=== PATIENT | female | born 1990 | race Caucasian/White ===

== ENCOUNTER → 2016-03-31 | Outpatient (CLI) | payer OTHER ==
[~2016-03-31] MED LIST: BUTA50TA6 PO; LEVE250T PO; LEVO75TA5 PO; ZNTT/150 PO; ZOLP10TA6 PO
[2016-03-31 14:04] LABS: INFLUENZA A PCR POS for Influ A (NEG); INFLUENZA B PCR Neg for Influ B (NEG)
== END | disposition home or self-care (01) ==
LOC: C.LABBFT 09:43
PROVIDERS: ATTEND Internal Medicine
DX: R68.89 Other general symptoms and signs (principal)

== ENCOUNTER → 2016-09-28 | Outpatient (CLI) | payer OTHER ==
[2016-09-28 17:54] LABS: BASO % 0.5 %; BASO ABS # 0.04 K/uL (0-0.2); COMPLETE YES; EOS % 0.7 %; HEMATOCRIT 40.2 % (37-47); IG% 0.2 %; LYMPH % 27.9 %; LYMPH ABS # 2.26 K/uL (1.2-3.4); MEAN CELL VOLUME 87.2 fL (80-100); MEAN CORPUSCULAR HEMOGLOBIN 29.3 pg (25-34); MEAN CORPUSCULAR HGB CONC 33.6 g/dl (32-36); MEAN PLATELET VOLUME 11.9 fL (7.4-10.4); MONO % 5.6 %; NEUT % 65.1 %; PLATELET COUNT 236 K/uL (130-400); RED BLOOD COUNT 4.61 M/uL (4.2-5.4)
[2016-09-28 18:03] LABS: ALT/SGPT 29 U/L (12-78); BLOOD UREA NITROGEN 10 mg/dl (7-18); CALCIUM 9.3 mg/dl (8.5-10.1); CARBON DIOXIDE 24 mmol/L (21-32); CHLORIDE 108 mmol/L (98-107); CHOLESTEROL 164 mg/dl (0-200); GLUCOSE 82 mg/dl (70-99); POTASSIUM 4.3 mmol/L (3.5-5.1); SODIUM 140 mmol/L (136-145); TRIGLYCERIDES 173 mg/dl (0-150); VERY LOW DENSITY LIPOPROT CALC 35 mg/dl
[2016-09-28 18:11] LABS: ALB/GLOB RATIO 0.9 (0.9-2); ALKALINE PHOSPHATASE 67 U/L (45-117); AST/SGOT 22 U/L (15-37); CHOLESTEROL/HDL RATIO 3.5; HDL CHOLESTEROL 47 mg/dl; LDL CHOLESTEROL CALCULATED 82 mg/dl
== END | disposition home or self-care (01) ==
LOC: C.LABBFT 12:45
PROVIDERS: ATTEND Physician Assistant Medical
DX: E03.9 Hypothyroidism, unspecified (principal)

== ENCOUNTER → 2017-02-20 | Outpatient (CLI) | payer OTHER ==
[~2017-02-20] MED LIST changes: +ASCO100T4 PO; +B-COTAB18 PO; +CAL MAG ZINC PO; +CHOL20007 PO; +ERGO500011 PO; +ETONMIS VAGRING; +HYDR-5688 PO; +LEVE500T13 PO; +LEVO50TA6 PO; +LORA-741 PO; +METH-445 PO; +POTA1TAB PO; +RANI150T85 PO; -ZNTT/150 PO
[2017-02-20 13:05] LABS: ALBUMIN 3.4 gm/dl (3.4-5.0); ALT/SGPT 26 U/L (12-78); AST/SGOT 17 U/L (15-37); BLOOD UREA NITROGEN 10 mg/dl (7-18); CALCIUM 8.7 mg/dl (8.5-10.1); CARBON DIOXIDE 23 mmol/L (21-32); CREATININE 1.05 mg/dl (0.60-1.20); GLUCOSE 85 mg/dl (70-99); POTASSIUM 3.8 mmol/L (3.5-5.1); SODIUM 137 mmol/L (136-145); TOTAL PROTEIN 7.6 gm/dl (6.4-8.2)
[2017-02-20 13:16] LABS: ALKALINE PHOSPHATASE 70 U/L (45-117)
== END | disposition home or self-care (01) ==
LOC: C.LABBFT 09:21
PROVIDERS: ATTEND Internal Medicine
DX: R25.2 Cramp and spasm (principal); E03.9 Hypothyroidism, unspecified; E55.9 Vitamin D deficiency, unspecified; D89.2 Hypergammaglobulinemia, unspecified

== ENCOUNTER → 2017-05-07 | Outpatient (CLI) | payer OTHER ==
[~2017-05-07] MED LIST changes: +GADAVIST IV PRN; -LEVE250T PO; -LEVO75TA5 PO; -METH-445 PO; +METH500T37 PO
--- NOTE | 2017-05-07 11:14 | DIAGNOSTIC IMAGING REPORT ---
R INJECTION SHOULDER PRE MRI CLINICAL HISTORY: 27 years-old Female presenting with RIGHT SHOULDER ARTHROGRAM PRE MRI. COMPARISON: 04/13/2017. PROCEDURE: The risks, benefits, and alternatives to the procedure were discussed with the patient. Written informed consent was obtained. The patient was placed supine on the fluoroscopy table, and a right shoulder injection was performed under fluoroscopic guidance. The area was prepped and draped in the usual sterile fashion. The skin and soft tissues anesthetized with local 1% lidocaine. The right shoulder joint was accessed utilizing a 22-gauge needle, and approximately 10 cc of a mixture of gadolinium contrast, Optiray 300, and saline was injected into the joint space under fluoroscopic guidance. There was normal distention of the capsule. The procedure was well tolerated without immediate complication. The patient was then transferred to MRI for MR arthrography. Fluoroscopy dosage (mGy): Not available. Fluoroscopy time: 15 seconds. Number of fluoroscopic spot images: 0. IMPRESSION: Successful injection of the right shoulder under fluoroscopic guidance. Electronically signed by: Fam Rascon M.D. 05/07/2017 11:12 AM Dictated Date/Time: 05/07/2017 11:12 AM
--- NOTE | 2017-05-07 12:48 | DIAGNOSTIC IMAGING REPORT ---
R UPPER EXT JOINT WITH CLINICAL HISTORY: 27 years-old Female presenting with RT SHOULDER PAIN, ROTATOR CUFF TENDONITIS. TECHNIQUE: Multisequence, multiplanar MR imaging of the right shoulder was performed after the administration of intra-articular contrast. IV contrast: None. COMPARISON: Plain radiographs from 04/13/2017. FINDINGS: Localizer images: Unremarkable. Bone marrow: No bony edema. Articular cartilage: Intact. Labrum: Irregularity of the posterior inferior labrum from 6:00 to 9:00 concerning for a tear. This appears to remain in continuity with the periosteum of the glenoid. The biceps labral complex is intact. Long head of the biceps tendon well seated within the intertubercular groove. Short head of the biceps tendon and long head of the triceps tendon intact. Rotator cuff: Minimal increased signal intensity within the infraspinatus and supraspinatus tendons without a focal tear, possibly mild tendinosis. Subscapularis and teres minor tendons intact. Acromioclavicular joint: Normal. Flat undersurface of the acromion. Joint: Expected distention with intra-articular contrast. No loose body. Muscles: Normal muscle bulk and muscle signal intensity. IMPRESSION: 1. Findings suggest posterior inferior labral tear. 2. No evidence of a rotator cuff tear. Possible tendinosis of the infraspinatus and supraspinatus tendons. Electronically signed by: Fam Rascon M.D. 05/07/2017 12:47 PM Dictated Date/Time: 05/07/2017 11:13 AM
== END | disposition home or self-care (01) ==
LOC: C.MRIBC 09:59
PROVIDERS: ATTEND Orthopaedic Surgery
DX: M75.91 Shoulder lesion, unspecified, right shoulder (principal)

== ENCOUNTER → 2017-09-06 | Outpatient (CLI) | payer OTHER ==
[~2017-09-06] MED LIST changes: -GADAVIST IV PRN
== END | disposition home or self-care (01) ==
LOC: C.LABBFT 11:11
PROVIDERS: ATTEND Nurse Practitioner
DX: E03.9 Hypothyroidism, unspecified (principal); E55.9 Vitamin D deficiency, unspecified; Z13.220 Encounter for screening for lipoid disorders; Z13.228 Encounter for screening for other metabolic disorders; R10.9 Unspecified abdominal pain

== ENCOUNTER → 2017-09-26 | Outpatient (CLI) | payer OTHER ==
[~2017-09-26] MED LIST changes: +METH-445 PO; -METH500T37 PO
== END | disposition home or self-care (01) ==
LOC: C.LABBFT 13:41
PROVIDERS: ATTEND Nurse Practitioner
DX: R10.9 Unspecified abdominal pain (principal); Z13.220 Encounter for screening for lipoid disorders; E06.3 Autoimmune thyroiditis; E55.9 Vitamin D deficiency, unspecified

== ENCOUNTER 2020-08-09 07:51 | Inpatient (IN) ==
[2020-08-09] MEDS ORDERED: DINOPROSTONE 10 MG INSERT PV ONE (10:10)
[2020-08-09] MEDS ORDERED: OXYTOCIN 30 UNITS/500 ML BAG IV PRN (10:10)
--- NOTE | 2020-08-09 10:23 | History & Physical Report ---
Date of Service August 09, 2020 Assessment & Plan (1) Elective induction of labor planned: 30-year-old at 40 weeks of gestation, scheduled induction of labor at term due to ongoing tooth abscess and requiring root canal therapy in next following weeks. Vital signs stable afebrile, heart rate reassuring, GBS negative, Cervix unfavorable and presenting part is high. Discussed induction of labor with above findings and understands it may take 1 to 3 days. We discussed prostaglandins as Cervidil and Cytotec, Plan to admit, monitor, IV fluids, labs and Cervidil for cervical ripening All questions were answered. (2) Tooth abscess: (3) Unfavorable cervix in term : Admission and Anticipated Discharge Date Admission Date: August 09, 2020 History of Present Illness Primary Care Provider: Vladimir Watt MD Patient is a 30-year-old G1, P0 at 40 weeks of gestation who is scheduled for induction of labor at term due to ongoing tooth abscess and requiring root canal treatment sooner than later. Patient has no signs of labor, denies contractions, leakage of fluid, vaginal bleeding and she reports good movements. Her has been complicated by 1 hypothyroidism, on Levoxyl 50 mcg daily 2 headache in , migraines and has been on magnesium, vitamin B complex and Keppra 3 Tooth abscess, on Amoxicillin Allergies Allergy/AdvReac Type Severity Reaction Status Date / Time sumatriptan Allergy Mild could have Verified 08/09/20 08:35 caused pancreatitis in the past, SOB, HEADACHE topiramate Allergy Unknown UNKNOWN Verified 08/09/20 08:35 Home Medications Medication Instructions Recorded Confirmed Type cholecalciferol (vitamin D3) 50 2,000 units PO DAILY 11/30/17 08/09/20 History mcg (2,000 unit) capsule famotidine 20 mg tablet 20 mg PO DAILY #90 tab 07/24/19 08/09/20 Rx butalbital 50 mg-acetaminophen 300 1 - 2 tab PO BID PRN #10 tab 10/14/19 08/09/20 Rx mg tablet docosahexaenoic acid 200 mg capsule 200 mg PO DAILY #30 cap 12/08/19 08/09/20 Rx folic acid 1 mg tablet 1 mg PO DAILY #30 tab 12/08/19 08/09/20 Rx levetiracetam 500 mg tablet 500 mg PO .COMPLEX 30 Days #90 tab 03/26/20 08/09/20 Rx riboflavin (vitamin B2) 400 mg 400 mg PO DAILY #30 tab 05/07/20 08/09/20 Rx tablet levothyroxine 50 mcg tablet 50 mcg PO DAILY #30 tab 06/28/20 08/09/20 Rx amoxicillin 500 mg PO TID 08/09/20 08/09/20 History magnesium oxide 250 mg PO DAILY 08/09/20 08/09/20 History Patient History Medical History (Updated 08/09/20 @ 10:21 by Gopi Van MD) Ld's thyroiditis History of acute pancreatitis History of Lyme disease Migraine without aura, not intractable, without status migrainosus Radial head dislocation Family History Mother Rheumatoid arthritis Crohn's disease Father Hypertension Social History Smoking Status: Never smoker Hx Alcohol Use: No Hx Substance Use: No Preferred Language: Yakut Communication Ability: Effective Beliefs That Will Affect Care: None marital status: Current Living Situation: Spouse current occupational status: employed 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 Other Information That Helps Us Care for You: No Feels Safe at Home: Yes Safety Concerns: Feels Safe At This Time Assistive Devices: None 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 No h/o STD's, no h/o HSV, Chlamydia, Gonorrhea Physical Exam Constitutional: WD/WN, vitals as above well developed and well nourished NAD Gastrointestinal (Abdomen): normal bowel sounds, soft, nontender, no hepatosplenomegaly (Gravid, Del 7-8 lb) Genitourinary: normal external appearance Manual OB Exam: + cervical dilation (0), + cervical effacement 30% and + station high (-5) OB Exam Monitor Tracing: + external uterine monitor used and + category I Bed side US: vertex, placenta fundo posterior Results & Data ([facility]) Vital Signs (Past 12 Hours) Vital Signs Temp Pulse Resp BP 08/09/20 08:22 36.8 C 88 20 122/70
[2020-08-09 10:36] LABS: Hematocrit (blood only) 36.3 % (37-47); Hemoglobin 12.7 g/dL (12.0-16.0); Mean Corpuscular Hemoglobin 32.1 pg (25-34); Mean Corpuscular Volume 91.7 fL (80-100); Mean Platelet Volume 11.6 fL (7.4-10.4); Platelet Count 256 K/uL (130-400); RDW Coefficient of Variation 14.8 % (11.5-14.5); RDW Standard Deviation 49.8 fL (36.4-46.3); Red Blood Count 3.96 M/uL (4.2-5.4); White Blood Count 11.26 K/uL (4.8-10.8)
[2020-08-09] MEDS: AMOXICILLIN 500 MG CAP PO SCH ×2 (13:21→17:06)
[2020-08-09] MEDS ORDERED: AMOXICILLIN 500 MG CAP PO SCH (14:00)
--- NOTE | 2020-08-09 20:45 | Obstetrical Progress Note ---
Date of Service August 09, 2020 Assessment & Plan Admission and Anticipated Discharge Date Admission Date: August 09, 2020 Subjective Her induction was delayed due to nursing team and room availability She feels well no complaints Cervidil is placed FHR reassuring Continue to monitor closely Results & Data ([facility]) Vital Signs (Past 12 Hours) Vital Signs Temp Pulse Resp BP 08/09/20 20:15 76 136/83 08/09/20 14:58 36.6 C 75 20 135/83
[2020-08-09] MEDS: levETIRAcetam 500 MG TAB PO SCH (22:03)
[2020-08-09] MEDS ORDERED: ACETAMINOPHEN 1,000 MG/100 ML VIAL IV PRN (23:29)
[2020-08-09] MEDS: LACTATED RINGER'S 1,000 ML IV PRN (23:54)
[2020-08-09] MEDS: BUTORPHANOL TARTRATE 1 MG/ML VIAL IV PRN (23:55)
[2020-08-10] MEDS ORDERED: ONDANSETRON INJ 2 MG/ML 2 ML VIAL ONE (02:19)
[2020-08-10] MEDS: BUTORPHANOL TARTRATE 1 MG/ML VIAL IV PRN ×2 (03:00→21:37)
[2020-08-10] MEDS ORDERED: fentaNYL citrate 100 MCG/2 ML VIAL ONE ×2 (04:12→22:13)
[2020-08-10] MEDS ORDERED: fentaNYL 2MCG/ML ROPIVACAINE 1.25MG/ML 100 ML BAG EPI ONE (04:12)
[2020-08-10] MEDS ORDERED: SODIUM CHLORIDE 0.9% INJ 10 ML VIAL ONE (04:12)
[2020-08-10] MEDS ORDERED: BUPIVACAINE 0.25% 30 ML VIAL ONE (04:12)
[2020-08-10] MEDS ORDERED: ePHEDrine sulfate 50 MG/ML AMP ONE (04:12)
[2020-08-10] MEDS: LACTATED RINGER'S 1,000 ML IV PRN ×4 (04:31→18:09)
--- NOTE | 2020-08-10 05:01 | Anesthesiology Consultation ---
Date of Service August 10, 2020 Assessment & Plan Chart Review Chart Review: Acceptable Risk for Labor Epidural Consults Requested none History Height/Weight Height: 5 ft 3 in Weight: 100.698 kg Allergies Allergy/AdvReac Type Severity Reaction Status Date / Time sumatriptan Allergy Mild could have Verified 08/09/20 08:35 caused pancreatitis in the past, SOB, HEADACHE topiramate Allergy Unknown UNKNOWN Verified 08/09/20 08:35 Medications Home Medications Medication Instructions Recorded Confirmed Last Taken cholecalciferol (vitamin D3) 50 2,000 units PO DAILY 11/30/17 08/09/20 08/09/20 06:00 mcg (2,000 unit) capsule famotidine 20 mg tablet 20 mg PO DAILY #90 tab 07/24/19 08/09/20 08/09/20 06:00 butalbital 50 mg-acetaminophen 300 1 - 2 tab PO BID PRN #10 tab 10/14/19 08/09/20 Unknown mg tablet docosahexaenoic acid 200 mg capsule 200 mg PO DAILY #30 cap 12/08/19 08/09/20 08/09/20 06:00 folic acid 1 mg tablet 1 mg PO DAILY #30 tab 12/08/19 08/09/20 08/09/20 06:00 levetiracetam 500 mg tablet 500 mg PO .COMPLEX 30 Days #90 tab 03/26/20 08/09/20 08/09/20 06:00 riboflavin (vitamin B2) 400 mg 400 mg PO DAILY #30 tab 05/07/20 08/09/20 08/09/20 06:00 tablet levothyroxine 50 mcg tablet 50 mcg PO DAILY #30 tab 06/28/20 08/09/20 08/09/20 06:00 amoxicillin 500 mg PO TID 08/09/20 08/09/20 08/09/20 06:00 magnesium oxide 250 mg PO DAILY 08/09/20 08/09/20 08/09/20 06:00 Active Medications Generic Name Dose Route Start Last Admin Trade Name Freq PRN Reason Stop Dose Admin Amoxicillin 500 mg 08/09/20 12:30 08/09/20 17:06 Amoxicillin 500 Mg Cap PO 08/16/20 12:29 500 mg TIDM GRETCHEN Administration Protocol Butorphanol Tartrate 1 mg 08/09/20 23:29 08/10/20 03:00 Butorphanol Tartrate 1 Mg/Ml Vial IV 09/08/20 23:28 1 mg Q3HWA PRN Administration Pain Lactated Ringer's 1,000 mls @ 150 mls/hr 08/09/20 10:10 08/10/20 04:44 Lr IV 08/11/20 10:09 150 mls/hr .Q6H40M PRN Infusion L&D Protocol Protocol Acetaminophen 1,000 mg in 100 mls @ 200 mls/hr 08/09/20 23:29 08/10/20 02:27 Ofirmev IV 08/12/20 23:28 200 mls/hr Q8H PRN Administration pain Protocol Levetiracetam 1,000 mg 08/10/20 21:00 08/09/20 22:03 Levetiracetam 500 Mg Tab PO 09/09/20 20:59 1,000 mg QPM GRETCHEN Administration Past Medical History Medical History Ld's thyroiditis History of acute pancreatitis History of Lyme disease Migraine without aura, not intractable, without status migrainosus Radial head dislocation Past Family History Family History Mother Rheumatoid arthritis Crohn's disease Father Hypertension Social History Smoking Status: Never smoker Hx Alcohol Use: No Alcohol type: wine alcohol intake frequency: a few times a week Hx Substance Use: No substance use type: does not use Physical Exam Vital Signs Last Vital Signs Temp 36.7 C 08/10/20 03:57 Pulse 102 H 08/10/20 04:58 Resp 18 08/10/20 03:57 BP 113/55 L 08/10/20 04:58 Pulse Ox 97 08/10/20 04:57 Testing Laboratory Results 08/09/20 10:22
[2020-08-10] MEDS ORDERED: NALOXONE HCL 1 MG in SODIUM CHLORIDE 0.9% 1000ML 1,000 ML IV PRN (05:03)
[2020-08-10] MEDS ORDERED: NALOXONE HCL 0.4 MG/1 ML VIAL/CARP IV PRN (05:03)
[2020-08-10] MEDS ORDERED: ePHEDrine sulfate 50 MG/ML AMP IV PRN ×2 (05:03→22:32)
[2020-08-10] MEDS ORDERED: diphenhydrAMINE 50 MG/ML VIAL IV PRN (05:03)
[2020-08-10] MEDS ORDERED: TERBUTALINE SULFATE 1 MG/ML VIAL ONE (06:02)
--- NOTE | 2020-08-10 06:15 | Obstetrical Progress Note ---
Date of Service August 10, 2020 Assessment & Plan Admission and Anticipated Discharge Date Admission Date: August 09, 2020 Subjective Patient received epidural for pain and comfortable now Cervidil came out spontaneously. Her cervix was 4/ 75%/ -2 she had ctxs q 1 min and prolonged one and FHR had decels Nasal O2 and IVF bolus were started and One dose of terbutaline was given and now FHR 150's, no decels Continue to monitor closely Results & Data ([facility]) Vital Signs (Past 12 Hours) Vital Signs Temp Pulse Resp BP Pulse Ox 08/10/20 06:07 107 H 100 08/10/20 06:05 96 H 126/59 L 08/10/20 06:02 98 H 100 08/10/20 05:57 87 100 08/10/20 05:52 72 100 08/10/20 05:49 88 124/58 L 08/10/20 05:47 78 98 08/10/20 05:42 86 99 08/10/20 05:37 90 99 08/10/20 05:35 75 117/58 L 08/10/20 05:32 77 97 08/10/20 05:27 90 99 08/10/20 05:22 86 98 08/10/20 05:19 88 123/62 08/10/20 05:17 93 H 99 08/10/20 05:14 89 125/61 08/10/20 05:12 95 H 100 08/10/20 05:08 95 H 127/60 08/10/20 05:07 95 H 99 08/10/20 05:03 97 H 119/58 L 08/10/20 05:02 100 H 98 08/10/20 04:58 102 H 113/55 L 08/10/20 04:57 102 H 97 08/10/20 04:56 94 H 109/61 08/10/20 04:54 93 H 109/56 L 08/10/20 04:52 91 H 115/57 L 96 08/10/20 04:50 92 H 117/63 08/10/20 04:48 85 114/56 L 08/10/20 04:47 93 H 96 08/10/20 04:42 102 H 97 08/10/20 04:41 102 H 86 L 08/10/20 04:37 100 H 99 08/10/20 04:32 101 H 97 08/10/20 04:27 104 H 99 08/10/20 04:22 106 H 98 08/10/20 03:57 36.7 C 98 H 18 143/79 H 08/09/20 23:32 36.6 C 88 18 134/80 08/09/20 21:37 77 137/80 08/09/20 20:15 76 136/83 08/09/20 20:00 36.7 C 16
[2020-08-10] MEDS: LEVOTHYROXINE SODIUM 50 MCG TABLET PO SCH (06:20)
--- NOTE | 2020-08-10 07:59 | Obstetrical Progress Note ---
Date of Service August 10, 2020 Physical Exam Genitourinary OB Exam Abdomen: + heart tones Manual OB Exam: + cervical dilation 7 cm, + cervical effacement 90%, + station - 2 and + amniotic fluid clear OB Exam Monitor Tracing: + external FHT monitor used, + external uterine monitor used, + category I and + normal FHT variability Results & Data ([facility]) Vital Signs (Past 12 Hours) Vital Signs Temp Pulse Resp BP Pulse Ox 08/10/20 07:52 88 99 08/10/20 07:49 100 H 128/63 08/10/20 07:47 94 H 99 08/10/20 07:42 101 H 98 08/10/20 07:38 36.8 C 22 08/10/20 07:37 99 H 99 08/10/20 07:34 106 H 134/65 08/10/20 07:32 107 H 100 08/10/20 07:27 101 H 98 08/10/20 07:22 103 H 98 08/10/20 07:20 102 H 133/67 08/10/20 07:17 102 H 98 08/10/20 07:12 109 H 98 08/10/20 07:07 109 H 99 08/10/20 07:04 110 H 128/60 08/10/20 07:02 109 H 98 08/10/20 06:57 106 H 98 08/10/20 06:52 112 H 99 08/10/20 06:49 115 H 132/60 08/10/20 06:47 111 H 98 08/10/20 06:42 113 H 97 08/10/20 06:37 107 H 99 08/10/20 06:35 113 H 131/60 08/10/20 06:32 111 H 98 08/10/20 06:27 111 H 99 08/10/20 06:22 113 H 99 08/10/20 06:20 114 H 135/63 08/10/20 06:17 112 H 100 08/10/20 06:12 111 H 100 08/10/20 06:07 107 H 100 08/10/20 06:05 96 H 126/59 L 08/10/20 06:02 98 H 100 08/10/20 05:57 87 100 08/10/20 05:52 72 100 08/10/20 05:49 88 124/58 L 08/10/20 05:47 78 98 08/10/20 05:42 86 99 08/10/20 05:37 90 99 08/10/20 05:35 75 117/58 L 08/10/20 05:32 77 97 08/10/20 05:27 90 99 08/10/20 05:22 86 98 08/10/20 05:19 88 123/62 08/10/20 05:17 93 H 99 08/10/20 05:14 89 125/61 08/10/20 05:12 95 H 100 08/10/20 05:08 95 H 127/60 08/10/20 05:07 95 H 99 08/10/20 05:03 97 H 119/58 L 08/10/20 05:02 100 H 98 08/10/20 04:58 102 H 113/55 L 08/10/20 04:57 102 H 97 08/10/20 04:56 94 H 109/61 08/10/20 04:54 93 H 109/56 L 08/10/20 04:52 91 H 115/57 L 96 08/10/20 04:50 92 H 117/63 08/10/20 04:48 85 114/56 L 08/10/20 04:47 93 H 96 08/10/20 04:42 102 H 97 08/10/20 04:41 102 H 86 L 08/10/20 04:37 100 H 99 08/10/20 04:32 101 H 97 08/10/20 04:27 104 H 99 08/10/20 04:22 106 H 98 08/10/20 03:57 36.7 C 98 H 18 143/79 H 08/09/20 23:32 36.6 C 88 18 134/80 08/09/20 21:37 77 137/80 08/09/20 20:15 76 136/83 08/09/20 20:00 36.7 C 16
[2020-08-10] MEDS: AMOXICILLIN 500 MG CAP PO SCH ×2 (08:06→12:31)
[2020-08-10] MEDS ORDERED: NON-FORMULARY MEDICATION (Riboflavin (Vitamin B2) 400 mg tablet) PO SCH (09:00)
[2020-08-10] MEDS: MAGNESIUM OXIDE 400 MG TAB PO SCH (09:39)
[2020-08-10] MEDS: FOLIC ACID 1 MG TAB PO SCH (09:39)
[2020-08-10] MEDS: FAMOTIDINE 20 MG TAB PO SCH (09:39)
[2020-08-10] MEDS: fentaNYL 2MCG/ML ROPIVACAINE 1.25MG/ML 100 ML BAG EPI PRN ×2 (11:00→17:57)
[2020-08-10] MEDS: levETIRAcetam 500 MG TAB PO SCH ×2 (11:21→23:26)
[2020-08-10] MEDS: PRENATAL VITAMIN 1 TAB PO SCH (11:38)
[2020-08-10] MEDS ORDERED: OXYTOCIN 30 UNITS/500 ML BAG IV PRN ×2 (12:41→22:50)
--- NOTE | 2020-08-10 21:58 | History & Physical Bridge Note ---
Date of Service August 10, 2020 History & Physical Bridge Note I have examined the patient, reviewed the History & Physical and in the interval since the performance of the History & Physical I have noted the following changes of clinical significance: no changes noted
[2020-08-10] MEDS ORDERED: LIDOCAINE 2%/EPINEPHRINE 1:200,000 20 ML SDV ONE (22:03)
--- NOTE | 2020-08-10 22:06 | Delivery Summary ---
Vaginal Delivery Summary Date of Service August 10, 2020 Vaginal Delivery Summary Delivery Note live female JAYCEE over intact perineum with nuchal cord x2 at reduced on the perineum at delivery. Apgars and weight pending. Cord blood obtained. Placenta retained. No tears. EBL 250 ml. Patient to go to OR for manual removal of placenta and possible D&C. Final sponge and instrument count are correct. Baby to nursery.
[2020-08-10] MEDS ORDERED: CITRIC ACID/SODIUM CITRATE 15 ML UDC PO STA (22:14)
[2020-08-10] MEDS ORDERED: MIDAZOLAM HCL 1 MG/ML 2ML VIAL ONE (22:15)
[2020-08-10] MEDS ORDERED: LACTATED RINGER'S 1,000 ML IV SCH (22:15)
--- NOTE | 2020-08-10 22:19 | Anesthesiology Consultation ---
Date of Service August 10, 2020 Assessment & Plan Chart Review Chart Review: Acceptable Risk for Surgery Consults Requested none ASA [id number] Proposed Anesthesia Anesthesia Type: MAC Epidural Risk / Benefits Reviewed With: PT / POA / Parent / Guardian, Accepts Plan and Informed Consent Obtained History Surgery Operation Date: 08/10/20 22:20 Proposed Procedures p Dilatation and Curettage - Han Rowan MD Height/Weight Height: 5 ft 3 in Weight: 100.698 kg Allergies Allergy/AdvReac Type Severity Reaction Status Date / Time sumatriptan Allergy Mild could have Verified 08/09/20 08:35 caused pancreatitis in the past, SOB, HEADACHE topiramate Allergy Unknown UNKNOWN Verified 08/09/20 08:35 Medications Home Medications Medication Instructions Recorded Confirmed Last Taken cholecalciferol (vitamin D3) 50 2,000 units PO DAILY 11/30/17 08/09/20 08/09/20 06:00 mcg (2,000 unit) capsule famotidine 20 mg tablet 20 mg PO DAILY #90 tab 07/24/19 08/09/20 08/09/20 06:00 butalbital 50 mg-acetaminophen 300 1 - 2 tab PO BID PRN #10 tab 10/14/19 08/09/20 Unknown mg tablet docosahexaenoic acid 200 mg capsule 200 mg PO DAILY #30 cap 12/08/19 08/09/20 08/09/20 06:00 folic acid 1 mg tablet 1 mg PO DAILY #30 tab 12/08/19 08/09/20 08/09/20 06:00 levetiracetam 500 mg tablet 500 mg PO .COMPLEX 30 Days #90 tab 03/26/20 08/09/20 08/09/20 06:00 riboflavin (vitamin B2) 400 mg 400 mg PO DAILY #30 tab 05/07/20 08/09/20 08/09/20 06:00 tablet levothyroxine 50 mcg tablet 50 mcg PO DAILY #30 tab 06/28/20 08/09/20 08/09/20 06:00 amoxicillin 500 mg PO TID 08/09/20 08/09/20 08/09/20 06:00 magnesium oxide 250 mg PO DAILY 08/09/20 08/09/20 08/09/20 06:00 Active Medications Generic Name Dose Route Start Last Admin Trade Name Freq PRN Reason Stop Dose Admin Butorphanol Tartrate 1 mg 08/09/20 23:29 08/10/20 21:37 Butorphanol Tartrate 1 Mg/Ml Vial IV 09/08/20 23:28 1 mg Q3HWA PRN Administration Pain Famotidine 20 mg 08/10/20 09:00 08/10/20 09:39 Famotidine 20 Mg Tab PO 09/09/20 08:59 20 mg DAILY GRETCHEN Administration Folic Acid 1 mg 08/10/20 09:00 08/10/20 09:39 Folic Acid 1 Mg Tab PO 09/09/20 08:59 1 mg DAILY GRETCHEN Administration Lactated Ringer's 1,000 mls @ 150 mls/hr 08/09/20 10:10 08/10/20 18:09 Lr IV 08/11/20 10:09 150 mls/hr .Q6H40M PRN Administration L&D Protocol Protocol Acetaminophen 1,000 mg in 100 mls @ 200 mls/hr 08/09/20 23:29 08/10/20 02:27 Ofirmev IV 08/12/20 23:28 200 mls/hr Q8H PRN Administration pain Protocol Oxytocin 30 units in 500 mls @ 14 mls/hr 08/10/20 12:41 08/10/20 20:25 Pitocin IV 08/12/20 12:40 0.84 units/hr .Q24H PRN 14 mls/hr Labor Induction/Augmentation Titration Protocol 0.84 UNITS/HR Levetiracetam 500 mg 08/10/20 09:00 08/10/20 11:21 Levetiracetam 500 Mg Tab PO 09/09/20 08:59 500 mg QAM GRETCHEN Administration Levetiracetam 1,000 mg 08/10/20 21:00 08/09/20 22:03 Levetiracetam 500 Mg Tab PO 09/09/20 20:59 1,000 mg QPM GRETCHEN Administration Levothyroxine Sodium 50 mcg 08/10/20 06:30 08/10/20 06:20 Levothyroxine Sodium 50 Mcg Tablet PO 09/09/20 06:29 50 mcg DAILYBB GRETCHEN Administration Magnesium Oxide 400 mg 08/10/20 09:00 08/10/20 09:39 Magnesium Oxide 400 Mg Tab PO 09/09/20 08:59 400 mg DAILY GRETCHEN Administration Prenat Multivit/[place]/Iron/Folic Ac 1 tab 08/10/20 09:00 08/10/20 11:38 Vitamin 1 Tab PO 09/09/20 08:59 Not Given DAILY GRETCHEN Ropivacaine 100 ml 08/10/20 05:03 08/10/20 17:57 Fentanyl 2mcg/Ml Ropivacaine 1.25mg/Ml 100 Ml Bag EPI 08/11/20 05:02 100 ml PRN PRN Administration Pain R/T Labor Protocol NPO Date Last Intake of Fluids: 08/10/20 Time Last Intake of Fluids: 04:00 Date Last Intake of Solids: 08/09/20 Time Last Intake of Solids: 17:00 Past Medical History Medical History Ld's thyroiditis History of acute pancreatitis History of Lyme disease Migraine without aura, not intractable, without status migrainosus Radial head dislocation Exercise / Class Metabolic Activity II 4-5 Yardwork/Stairs/Walk up hill Past Family History Family History Mother Rheumatoid arthritis Crohn's disease Father Hypertension Past Anesthesia History No Hx of Anesthesia Complications and No Family Hx of Anesthesia Complications History of PONV No Hx of PONV and No Hx of Motion Sickness Social History Smoking Status: Never smoker Hx Alcohol Use: No Alcohol type: wine alcohol intake frequency: a few times a week Hx Substance Use: No substance use type: does not use Physical Exam Vital Signs Last Vital Signs Temp 98.6 F 08/10/20 20:45 Pulse 92 H 08/10/20 21:57 Resp 20 08/10/20 18:55 BP 127/58 L 08/10/20 21:49 Pulse Ox 96 08/10/20 21:57 ENMT Mouth: no dentition abnormality Thyromental Distance: > or= 3.5 Finger Breadths Mallampati Class: II Neck normal visual inspection Respiratory normal respiratory effort Auscultation: lungs clear to auscultation bilaterally Cardiovascular Rate/Rhythm: regular rate and regular rhythm Testing Laboratory Results 08/09/20 10:22
[2020-08-10] MEDS ORDERED: OXYTOCIN 10 UNITS/ML VIAL ONE (22:26)
[2020-08-10] MEDS ORDERED: miSOPROStoL 100 MCG TAB ONE (22:31)
[2020-08-10] MEDS ORDERED: ONDANSETRON INJ 2 MG/ML 2 ML VIAL IV PRN (22:32)
[2020-08-10] MEDS ORDERED: KETOROLAC 30 MG/ML VIAL IV PRN (22:32)
[2020-08-10] MEDS ORDERED: ATROPINE SULFATE 0.1 MG/ML 10ML SYR IV PRN (22:32)
[2020-08-10] MEDS ORDERED: fentaNYL citrate 100 MCG/2 ML VIAL IV PRN (22:32)
--- NOTE | 2020-08-10 22:39 | Post Operative Brief Note ---
Immediate Post Op Note v1 Date of Surgery August 10, 2020 Pre & Post Diagnosis Operation Date: 08/10/20 22:20 Pre-Op Diagnosis: 1. Manual removal of the placenta Post-Op Diagnosis: 1. Same I identified the patient and participated in the time-out.: Yes Procedure Operation Date: 08/10/20 22:20 Manual removal of placenta Surgeon Han Rowan MD Retail Attendant none Estimated Blood Loss 400 Findings Consistent with Post-Op Diagnosis placenta Fluids LR Specimens placenta Anesthesia Type MAC Epidural Regional Complications none Disposition Accompanied Patient To Recovery: Yes Disposition: L&D Overlapping Procedure I was present for: the critical portions of procedure. I was immediately available: during the entire case. Back up surgeon: was not required during procedure.
[2020-08-10] MEDS ORDERED: miSOPROStoL 100 MCG TAB PR ONE (22:50)
[2020-08-10] MEDS ORDERED: bisacodyL 10 MG SUPP PR PRN (22:50)
[2020-08-10] MEDS ORDERED: DIPHTHERIA/TETANUS/PERTUSSIS 0.5 ML SYR/VIAL IM ONE (22:50)
[2020-08-10] MEDS ORDERED: HYDROCORTISONE ACETATE 25 MG SUPP PR PRN (22:50)
[2020-08-10] MEDS ORDERED: SUPERCREAM 0.870% 15 GM JAR EXT PRN (22:50)
[2020-08-10] MEDS ORDERED: BENZOCAINE 20% AER SPR 82.5 GM CAN EXT PRN (22:50)
--- NOTE | 2020-08-10 22:52 | Anesthesia Procedure Note ---
Date of Service August 10, 2020 Anesthesia Post Epidural Note Vital Signs Vital Signs: Temp Pulse Resp BP Pulse Ox 98.6 F 119 H 20 134/71 99 08/10/20 20:45 08/10/20 22:49 08/10/20 18:55 08/10/20 22:45 08/10/20 22:49 Notes Mental Status: alert / awake / arousable and participated in evaluation Patient Amnestic to Procedure: Yes Nausea / Vomiting: adequately controlled Pain: adequately controlled Airway Patency, RR, SpO2: stable & adequate BP & HR: stable & adequate Hydration State: stable & adequate Neuraxial Anesthesia: was administered and sensory block is resolving Anesthetic Complications: no major complications apparent and Pt Satisfied with anesthetic care Epidural: Removed without complications and With tip intact
--- NOTE | 2020-08-10 22:53 | Anesthesiology Progress Note ---
Date of Service August 10, 2020 Anesthesia Post Procedure Vital Signs Vital Signs: Temp Pulse Resp BP Pulse Ox 08/10/20 22:49 119 H 99 08/10/20 22:45 112 H 134/71 08/10/20 22:44 112 H 98 08/10/20 21:57 92 H 96 08/10/20 21:52 114 H 96 08/10/20 21:49 100 H 127/58 L 08/10/20 21:47 104 H 97 08/10/20 21:42 103 H 97 08/10/20 21:41 101 H 92 08/10/20 21:37 106 H 98 08/10/20 21:34 105 H 120/62 08/10/20 21:32 105 H 97 08/10/20 21:27 96 H 98 08/10/20 21:22 98 H 97 08/10/20 21:19 100 H 127/61 08/10/20 21:17 107 H 98 08/10/20 21:15 100 H 87 L 08/10/20 21:12 108 H 97 08/10/20 21:07 102 H 98 08/10/20 21:04 116 H 133/74 08/10/20 21:03 117 H 89 L 08/10/20 21:02 114 H 97 08/10/20 20:57 126 H 98 08/10/20 20:52 117 H 99 08/10/20 20:47 114 H 99 08/10/20 20:45 98.6 F 08/10/20 20:42 118 H 100 08/10/20 20:37 111 H 98 08/10/20 20:35 82 146/66 H 08/10/20 20:32 113 H 99 08/10/20 20:27 100 H 99 08/10/20 20:22 90 99 08/10/20 20:17 90 99 08/10/20 20:12 113 H 97 08/10/20 20:07 103 H 93 08/10/20 20:06 99 H 97 08/10/20 20:04 88 141/69 H 08/10/20 20:00 80 95 08/10/20 19:55 81 98 08/10/20 19:50 129 H 98 08/10/20 19:47 92 H 94 08/10/20 19:45 81 89 L 08/10/20 19:40 114 H 93 08/10/20 19:35 89 149/70 H 89 L 08/10/20 19:30 87 93 08/10/20 19:25 89 91 08/10/20 19:20 81 73 L 08/10/20 19:19 76 144/67 H 08/10/20 19:15 84 97 08/10/20 19:10 109 H 96 08/10/20 19:05 86 131/62 99 08/10/20 19:00 81 96 08/10/20 18:59 88 89 L 08/10/20 18:55 98.2 F 94 H 20 97 08/10/20 18:51 86 84 L 08/10/20 18:49 76 131/60 97 08/10/20 18:45 98 H 93 08/10/20 18:44 84 97 08/10/20 18:39 92 H 96 08/10/20 18:35 97 H 129/67 08/10/20 18:34 92 H 90 08/10/20 18:33 85 98 08/10/20 18:28 88 97 08/10/20 18:25 88 86 L 08/10/20 18:23 89 97 08/10/20 18:19 85 124/69 08/10/20 18:18 97 H 97 08/10/20 18:13 96 H 97 08/10/20 18:10 93 H 83 L 08/10/20 18:08 83 97 08/10/20 18:05 125 H 117/94 08/10/20 18:03 93 H 97 08/10/20 17:58 92 H 84 L 08/10/20 17:53 83 97 08/10/20 17:50 91 H 142/62 H 08/10/20 17:49 90 88 L 08/10/20 17:48 82 97 08/10/20 17:43 86 98 08/10/20 17:38 96 H 97 08/10/20 17:37 93 H 87 L 08/10/20 17:35 80 131/63 08/10/20 17:33 97 H 97 08/10/20 17:29 85 89 L 08/10/20 17:28 85 98 08/10/20 17:23 82 98 08/10/20 17:22 86 84 L 08/10/20 17:19 88 131/60 0622/21 17:18 88 98 08/10/20 17:13 86 98 08/10/20 17:10 90 88 L 08/10/20 17:08 89 97 08/10/20 17:03 88 97 08/10/20 17:02 94 H 88 L 08/10/20 16:58 90 98 08/10/20 16:53 89 86 L 08/10/20 16:52 81 98 08/10/20 16:49 85 131/60 08/10/20 16:47 117 H 98 08/10/20 16:46 97 H 84 L 08/10/20 16:42 98 H 98 08/10/20 16:37 91 H 86 L 08/10/20 16:34 85 133/57 L 08/10/20 16:32 97 H 98 08/10/20 16:31 101 H 86 L 08/10/20 16:27 100 H 99 08/10/20 16:24 115 H 86 L 08/10/20 16:22 86 99 08/10/20 16:19 78 146/66 H 08/10/20 16:17 85 99 08/10/20 16:12 83 99 08/10/20 16:08 98.2 F 20 08/10/20 16:07 77 99 08/10/20 16:05 102 H 91 08/10/20 16:02 72 100 08/10/20 15:57 71 100 08/10/20 15:52 71 100 08/10/20 15:50 72 125/66 08/10/20 15:47 72 99 08/10/20 15:42 68 100 08/10/20 15:37 65 100 08/10/20 15:34 71 135/73 08/10/20 15:32 71 100 08/10/20 15:27 67 100 08/10/20 15:22 70 100 08/10/20 15:20 64 136/73 08/10/20 15:17 65 100 08/10/20 15:12 65 100 08/10/20 15:07 66 100 08/10/20 15:04 65 129/67 08/10/20 15:02 66 100 08/10/20 14:57 65 100 08/10/20 14:52 66 100 08/10/20 14:50 61 128/65 0621 14:47 61 100 08/10/20 14:42 75 100 08/10/20 14:37 74 100 08/10/20 14:34 75 119/65 08/10/20 14:32 71 100 08/10/20 14:27 74 100 08/10/20 14:24 71 89 L 08/10/20 14:22 71 100 08/10/20 14:20 71 116/77 08/10/20 14:17 76 100 08/10/20 14:12 77 99 08/10/20 14:07 72 98 08/10/20 14:04 75 130/67 08/10/20 14:02 72 99 08/10/20 13:57 68 99 08/10/20 13:52 77 99 08/10/20 13:49 74 131/66 08/10/20 13:47 70 98 08/10/20 13:42 70 99 08/10/20 13:37 80 100 08/10/20 13:35 77 132/65 08/10/20 13:32 83 99 08/10/20 13:27 77 100 08/10/20 13:22 76 99 08/10/20 13:20 75 136/68 08/10/20 13:17 79 99 08/10/20 13:12 76 99 08/10/20 13:07 78 100 08/10/20 13:04 77 121/67 08/10/20 13:02 77 100 08/10/20 12:57 78 100 08/10/20 12:52 86 100 08/10/20 12:49 85 121/66 08/10/20 12:47 80 100 08/10/20 12:42 73 100 08/10/20 12:37 75 100 08/10/20 12:35 81 123/68 08/10/20 12:32 62 100 08/10/20 12:27 70 99 08/10/20 12:22 75 100 08/10/20 12:19 82 108/64 08/10/20 12:17 82 100 08/10/20 12:12 74 100 08/10/20 12:07 72 100 08/10/20 12:05 78 130/61 08/10/20 12:02 76 100 08/10/20 11:57 81 98 08/10/20 11:52 76 98 06/22/21 11:50 78 124/62 08/10/20 11:47 76 99 08/10/20 11:42 81 99 08/10/20 11:37 83 100 08/10/20 11:35 75 122/60 08/10/20 11:32 75 100 08/10/20 11:27 83 100 08/10/20 11:22 74 100 08/10/20 11:21 81 120/57 L 08/10/20 11:17 73 100 08/10/20 11:12 74 99 08/10/20 11:08 98.2 F 18 08/10/20 11:07 108 H 142/64 H 99 08/10/20 11:02 81 100 08/10/20 10:57 77 99 08/10/20 10:52 73 99 08/10/20 10:49 90 110/63 08/10/20 10:47 74 99 08/10/20 10:42 72 100 08/10/20 10:37 80 100 08/10/20 10:34 90 129/67 08/10/20 10:32 82 98 08/10/20 10:27 75 98 08/10/20 10:22 90 99 08/10/20 10:19 82 124/61 08/10/20 10:17 86 98 08/10/20 10:12 83 98 08/10/20 10:07 75 99 08/10/20 10:04 90 124/63 08/10/20 10:02 87 100 08/10/20 09:57 84 100 08/10/20 09:52 80 100 08/10/20 09:49 96 H 122/67 08/10/20 09:47 84 100 08/10/20 09:42 88 100 08/10/20 09:37 86 100 08/10/20 09:34 102 H 125/68 08/10/20 09:32 85 99 08/10/20 09:27 77 100 08/10/20 09:22 90 100 08/10/20 09:20 85 128/60 08/10/20 09:17 85 99 08/10/20 09:12 90 100 08/10/20 09:07 99 H 100 08/10/20 09:04 91 H 125/62 08/10/20 09:02 79 99 08/10/20 08:57 95 H 100 08/10/20 08:52 88 100 08/10/20 08:50 94 H 122/61 08/10/20 08:47 101 H 100 08/10/20 08:42 89 100 08/10/20 08:37 91 H 99 08/10/20 08:34 86 119/60 08/10/20 08:32 99 H 99 08/10/20 08:27 99 H 99 08/10/20 08:22 93 H 99 08/10/20 08:19 91 H 122/64 08/10/20 08:17 101 H 100 08/10/20 08:12 103 H 99 08/10/20 08:07 101 H 98 08/10/20 08:05 93 H 125/69 08/10/20 08:02 106 H 99 08/10/20 07:57 103 H 99 08/10/20 07:52 88 99 08/10/20 07:49 100 H 128/63 08/10/20 07:47 94 H 99 08/10/20 07:42 101 H 98 08/10/20 07:38 98.2 F 22 08/10/20 07:37 99 H 99 08/10/20 07:34 106 H 134/65 08/10/20 07:32 107 H 100 08/10/20 07:27 101 H 98 08/10/20 07:22 103 H 98 08/10/20 07:20 102 H 133/67 08/10/20 07:17 102 H 98 08/10/20 07:12 109 H 98 08/10/20 07:07 109 H 99 08/10/20 07:04 110 H 128/60 08/10/20 07:02 109 H 98 08/10/20 06:57 106 H 98 08/10/20 06:52 112 H 99 08/10/20 06:49 115 H 132/60 08/10/20 06:47 111 H 98 08/10/20 06:42 113 H 97 08/10/20 06:37 107 H 99 08/10/20 06:35 113 H 131/60 08/10/20 06:32 111 H 98 08/10/20 06:27 111 H 99 08/10/20 06:22 113 H 99 08/10/20 06:20 114 H 135/63 06/22/21 06:17 112 H 100 08/10/20 06:12 111 H 100 08/10/20 06:07 107 H 100 08/10/20 06:05 96 H 126/59 L 08/10/20 06:02 98 H 100 08/10/20 05:57 87 100 08/10/20 05:52 72 100 08/10/20 05:49 88 124/58 L 08/10/20 05:47 78 98 08/10/20 05:42 86 99 08/10/20 05:37 90 99 08/10/20 05:35 75 117/58 L 08/10/20 05:32 77 97 08/10/20 05:27 90 99 08/10/20 05:22 86 98 08/10/20 05:19 88 123/62 08/10/20 05:17 93 H 99 08/10/20 05:14 89 125/61 08/10/20 05:12 95 H 100 08/10/20 05:08 95 H 127/60 08/10/20 05:07 95 H 99 08/10/20 05:03 97 H 119/58 L 08/10/20 05:02 100 H 98 08/10/20 04:58 102 H 113/55 L 08/10/20 04:57 102 H 97 08/10/20 04:56 94 H 109/61 08/10/20 04:54 93 H 109/56 L 08/10/20 04:52 91 H 115/57 L 96 08/10/20 04:50 92 H 117/63 08/10/20 04:48 85 114/56 L 08/10/20 04:47 93 H 96 08/10/20 04:42 102 H 97 08/10/20 04:41 102 H 86 L 08/10/20 04:37 100 H 99 08/10/20 04:32 101 H 97 08/10/20 04:27 104 H 99 08/10/20 04:22 106 H 98 08/10/20 03:57 98.1 F 98 H 18 143/79 H 08/09/20 23:32 97.9 F 88 18 134/80 Transfer of Care Handoff Completed per policy Notes Mental Status: alert / awake / arousable and participated in evaluation Patient Amnestic to Procedure: Yes Nausea / Vomiting: adequately controlled Pain: adequately controlled Airway Patency, RR, SpO2: stable & adequate BP & HR: stable & adequate Hydration State: stable & adequate Neuraxial Anesthesia: was administered and sensory block is resolving Anesthetic Complications: no major complications apparent and Pt Satisfied with anesthetic care
[2020-08-10 22:58] LABS: Base Excess Cord Arterial Bld -10.9 mEq/L (-9-1.8); Base Excess Cord Venous Blood -8.9 mEq/L (-7.7-1.9); CO2 Cord Arterial Blood 60 mmHg (39.1-73.5); Cord Venous Blood HCO3 17 mmol/L (18.4-26.8); Cord Venous Blood PCO2 37 mmHg (30.4-57.2); Cord Venous Blood PO2 24 mmHg (14.1-43.3); Cord Venous Blood pH 7.28 (7.20-7.44); HCO3 Cord Arterial Blood 19 mmol/L (19.7-28.5); Oxygen Sat Cord Arterial Blood < 60.0 % (<60); PO2 Cord Arterial Blood 26 mmHg (4.1-31.7); pH Cord Arterial Blood 7.13 (7.1-7.38)
[2020-08-10 22:59] LABS: O2 Saturation Cord Venous Bld < 60.0 % (<68)
--- NOTE | 2020-08-11 00:04 | Operative Report (OR) ---
DATE OF PROCEDURE: 08/10/2020 PREOPERATIVE DIAGNOSIS: Retained placenta. POSTOPERATIVE DIAGNOSIS: Retained placenta. SURGEON: Han Rowan MD. SHEAR HELPER: None. ANESTHESIA: Epidural with MAC. COMPLICATIONS: None. FINDINGS: Retained placenta. CLINICAL HISTORY: The patient is a 30-year-old female who delivered via an uncomplicated spontaneous vaginal delivery today. The placenta was retained, and despite adequate time, placenta was not able to be removed. DESCRIPTION OF PROCEDURE: The patient was taken down to the OR, timeout was called prior to the sta rt of the procedure. Under satisfactory epidural and MAC anesthesia, the patient was prepped and aracelis ped in the usual sterile fashion. After the patient was adequately pain free, gloved hand was placed into the uterus, removing manually the placenta intact in its entirety. The placenta was examined a nd then submitted to pathology. No active bleeding. IV Pitocin was started and 1000 mcg of Cytotec was placed rectally. At the end of the procedure, all remaining sponge, needle and instrument counts are correct. EBL total from delivery was 250 and the surgery was 150, total 400. The patient was t hen placed supine on a stretcher. She was taken to recovery room in stable condition. Job ID: [id number]
[2020-08-11] MEDS: IBUPROFEN 600 MG TAB PO PRN ×3 (02:05→14:49)
[2020-08-11] MEDS: LEVOTHYROXINE SODIUM 50 MCG TABLET PO SCH (06:00)
[2020-08-11 06:20] LABS: Hematocrit (blood only) 22.7 % (37-47); Hemoglobin 7.9 g/dL (12.0-16.0); Mean Corpuscular Hemoglobin 31.5 pg (25-34); Mean Corpuscular Hgb Conc 34.8 g/dL (32-36); Mean Corpuscular Volume 90.4 fL (80-100); Platelet Count 225 K/uL (130-400); RDW Coefficient of Variation 15.1 % (11.5-14.5); RDW Standard Deviation 49.1 fL (36.4-46.3); Red Blood Count 2.51 M/uL (4.2-5.4); White Blood Count 21.09 K/uL (4.8-10.8)
[2020-08-11] MEDS ORDERED: COUGH DROP (SUGAR FREE) LOZ 24 LOZ/1 BOX BUCCAL ONE (07:56)
[2020-08-11] MEDS ORDERED: PRENATAL VITAMIN 1 TAB PO SCH (08:00)
[2020-08-11] MEDS ORDERED: FERROUS SULFATE 325 MG TAB PO SCH (08:00)
--- NOTE | 2020-08-11 08:07 | Obstetrical Progress Note ---
Date of Service August 11, 2020 Assessment & Plan Admission and Anticipated Discharge Date Admission Date: August 09, 2020 Subjective Patient is seen and examined. She feels well, no complaints. Ambulating without dizziness Voiding without difficulty Tolerating regular diet with out N&V Bleeding is minimal No fever/ chills/ CP/ SOB/ N&V/ Leg pain Breast feeding without problems Vital Signs Temp Pulse Pulse Resp BP BP Pulse Ox 08/11/20 07:56 36.7 C 88 18 119/76 99 08/11/20 04:10 37.1 C 102 H 16 120/80 95 08/11/20 01:35 36.7 C 112 H 16 122/85 98 08/11/20 01:14 104 H 99 08/11/20 01:09 104 H 99 08/11/20 01:04 98 H 98 08/11/20 01:00 37.7 C H 96 H 18 139/79 08/11/20 00:59 92 H 98 08/11/20 00:54 104 H 140/81 99 08/11/20 00:49 100 H 99 08/11/20 00:44 104 H 100 08/11/20 00:39 104 H 100 08/11/20 00:34 112 H 99 08/11/20 00:30 93 H 134/65 08/11/20 00:29 93 H 99 08/11/20 00:24 92 H 99 08/11/20 00:19 90 100 08/11/20 00:15 85 18 132/69 08/11/20 00:14 87 99 08/11/20 00:09 93 H 99 08/11/20 00:04 93 H 100 08/11/20 00:00 91 H 126/65 08/10/20 23:59 89 99 08/10/20 23:54 87 100 08/10/20 23:49 87 100 08/10/20 23:45 86 18 135/74 08/10/20 23:44 91 H 100 08/10/20 23:39 102 H 100 08/10/20 23:34 133 H 100 08/10/20 23:33 85 18 116/83 08/10/20 23:29 122 H 100 08/10/20 23:24 115 H 100 08/10/20 23:19 118 H 100 08/10/20 23:15 106 H 18 112/74 08/10/20 23:14 106 H 100 08/10/20 23:09 105 H 100 08/10/20 23:04 97 H 100 08/10/20 23:01 96 H 18 103/55 L 08/10/20 22:59 100 H 100 08/10/20 22:54 115 H 100 08/10/20 22:49 119 H 99 08/10/20 22:45 36.7 C 112 H 18 134/71 08/10/20 22:44 112 H 98 08/10/20 21:57 92 H 96 08/10/20 21:52 114 H 96 08/10/20 21:49 100 H 127/58 L 08/10/20 21:47 104 H 97 08/10/20 21:42 103 H 97 08/10/20 21:41 101 H 92 08/10/20 21:37 106 H 98 08/10/20 21:34 105 H 120/62 08/10/20 21:32 105 H 97 08/10/20 21:27 96 H 98 08/10/20 21:22 98 H 97 08/10/20 21:19 100 H 127/61 08/10/20 21:17 107 H 98 08/10/20 21:15 100 H 87 L 08/10/20 21:12 108 H 97 08/10/20 21:07 102 H 98 08/10/20 21:04 116 H 133/74 08/10/20 21:03 117 H 89 L 08/10/20 21:02 114 H 97 08/10/20 20:57 126 H 98 08/10/20 20:52 117 H 99 08/10/20 20:47 114 H 99 08/10/20 20:45 37.0 C 08/10/20 20:42 118 H 100 08/10/20 20:37 111 H 98 08/10/20 20:35 82 146/66 H 08/10/20 20:32 113 H 99 08/10/20 20:27 100 H 99 08/10/20 20:22 90 99 08/10/20 20:17 90 99 08/10/20 20:12 113 H 97 08/10/20 20:07 103 H 93 Lab Results 08/09/20 08/09/20 08/09/20 Range/Units 10:20 10:20 10:22 WBC 11.26 H (4.8-10.8) K/uL RBC 3.96 L (4.2-5.4) M/uL Hgb 12.7 (12.0-16.0) g/dL Hct 36.3 L (37-47) % MCV 91.7 (80-100) fL MCH 32.1 (25-34) pg MCHC 35.0 (32-36) g/dL RDW Std Deviation 49.8 H (36.4-46.3) fL RDW Coeff of Shyam 14.8 H (11.5-14.5) % Plt Count 256 (130-400) K/uL MPV 11.6 H (7.4-10.4) fL Cord ABG pH (7.1-7.38) Cord ABG pCO2 (39.1-73.5) mmHg Cord ABG pO2 (4.1-31.7) mmHg Cord ABG HCO3 (19.7-28.5) mmol/L Cord ABG Base Excess (-9-1.8) mEq/L Cord ABG O2 Sat (<60) % Cord VBG pH (7.20-7.44) Cord VBG pCO2 (30.4-57.2) mmHg Cord VBG pO2 (14.1-43.3) mmHg Cord VBG HCO3 (18.4-26.8) mmol/L Cord VBG Base Excess (-7.7-1.9) mEq/L Cord VBG O2 Sat (<68) % Barometric Pressure mm/Hg Blood Gas Comments COVID-19 [facility] [place], [place], NAAT NEGATIVE (NEGATIVE) 08/10/20 08/10/20 08/11/20 Range/Units 21:00 21:00 05:56 WBC 21.09 H (4.8-10.8) K/uL RBC 2.51 L (4.2-5.4) M/uL Hgb 7.9 L D (12.0-16.0) g/dL Hct 22.7 L (37-47) % MCV 90.4 (80-100) fL MCH 31.5 (25-34) pg MCHC 34.8 (32-36) g/dL RDW Std Deviation 49.1 H (36.4-46.3) fL RDW Coeff of Shyam 15.1 H (11.5-14.5) % Plt Count 225 (130-400) K/uL MPV 11.0 H (7.4-10.4) fL Cord ABG pH 7.13 (7.1-7.38) Cord ABG pCO2 60 (39.1-73.5) mmHg Cord ABG pO2 26 (4.1-31.7) mmHg Cord ABG HCO3 19 L (19.7-28.5) mmol/L Cord ABG Base Excess -10.9 L (-9-1.8) mEq/L Cord ABG O2 Sat < 60.0 (<60) % Cord VBG pH 7.28 (7.20-7.44) Cord VBG pCO2 37 (30.4-57.2) mmHg Cord VBG pO2 24 (14.1-43.3) mmHg Cord VBG HCO3 17 L (18.4-26.8) mmol/L Cord VBG Base Excess -8.9 L (-7.7-1.9) mEq/L Cord VBG O2 Sat < 60.0 (<68) % Barometric Pressure 731.1 731.3 mm/Hg Blood Gas Comments [facility] COVID-19 Eval Order SARS-CoV-2, RNA, NAAT (NEGATIVE) PE: General: Alert, orientedx3, NAD Abd: soft, NT, fundus firm, below Umbilicus Perineum intact, Lochia rubra minimal Ext; NT, no edema AP: 30 yo s/p , and manual delivery of placenta, ppd# 1 VSS Afebrile doing well Iron bid Continue routine care All questions were answered D/C home tomorrow Results & Data ([facility]) Vital Signs (Past 12 Hours) Vital Signs Temp Pulse Pulse Resp BP BP Pulse Ox 08/11/20 07:56 36.7 C 88 18 119/76 99 08/11/20 04:10 37.1 C 102 H 16 120/80 95 08/11/20 01:35 36.7 C 112 H 16 122/85 98 08/11/20 01:14 104 H 99 08/11/20 01:09 104 H 99 08/11/20 01:04 98 H 98 08/11/20 01:00 37.7 C H 96 H 18 139/79 08/11/20 00:59 92 H 98 08/11/20 00:54 104 H 140/81 99 08/11/20 00:49 100 H 99 08/11/20 00:44 104 H 100 08/11/20 00:39 104 H 100 08/11/20 00:34 112 H 99 08/11/20 00:30 93 H 134/65 08/11/20 00:29 93 H 99 08/11/20 00:24 92 H 99 08/11/20 00:19 90 100 08/11/20 00:15 85 18 132/69 08/11/20 00:14 87 99 08/11/20 00:09 93 H 99 08/11/20 00:04 93 H 100 08/11/20 00:00 91 H 126/65 08/10/20 23:59 89 99 08/10/20 23:54 87 100 08/10/20 23:49 87 100 08/10/20 23:45 86 18 135/74 08/10/20 23:44 91 H 100 08/10/20 23:39 102 H 100 08/10/20 23:34 133 H 100 08/10/20 23:33 85 18 116/83 08/10/20 23:29 122 H 100 08/10/20 23:24 115 H 100 08/10/20 23:19 118 H 100 08/10/20 23:15 106 H 18 112/74 08/10/20 23:14 106 H 100 08/10/20 23:09 105 H 100 08/10/20 23:04 97 H 100 08/10/20 23:01 96 H 18 103/55 L 08/10/20 22:59 100 H 100 08/10/20 22:54 115 H 100 08/10/20 22:49 119 H 99 08/10/20 22:45 36.7 C 112 H 18 134/71 08/10/20 22:44 112 H 98 08/10/20 21:57 92 H 96 08/10/20 21:52 114 H 96 08/10/20 21:49 100 H 127/58 L 08/10/20 21:47 104 H 97 08/10/20 21:42 103 H 97 08/10/20 21:41 101 H 92 08/10/20 21:37 106 H 98 08/10/20 21:34 105 H 120/62 08/10/20 21:32 105 H 97 08/10/20 21:27 96 H 98 08/10/20 21:22 98 H 97 08/10/20 21:19 100 H 127/61 08/10/20 21:17 107 H 98 08/10/20 21:15 100 H 87 L 08/10/20 21:12 108 H 97 08/10/20 21:07 102 H 98 08/10/20 21:04 116 H 133/74 08/10/20 21:03 117 H 89 L 08/10/20 21:02 114 H 97 08/10/20 20:57 126 H 98 08/10/20 20:52 117 H 99 08/10/20 20:47 114 H 99 08/10/20 20:45 37.0 C 08/10/20 20:42 118 H 100 08/10/20 20:37 111 H 98 08/10/20 20:35 82 146/66 H 08/10/20 20:32 113 H 99 08/10/20 20:27 100 H 99 08/10/20 20:22 90 99 08/10/20 20:17 90 99 08/10/20 20:12 113 H 97 08/10/20 20:07 103 H 93
[2020-08-11] MEDS ORDERED: FERROUS SULFATE 325 MG TAB PO ONE (08:16)
[2020-08-11] MEDS: ACETAMINOPHEN 325 MG TAB PO PRN ×2 (08:17→17:30)
[2020-08-11] MEDS: DOCUSATE SODIUM 100 MG CAP PO SCH ×2 (08:17→20:33)
[2020-08-11] MEDS: PRENATAL VITAMIN 1 TAB PO SCH (08:18)
[2020-08-11] MEDS: MAGNESIUM OXIDE 400 MG TAB PO SCH (08:19)
[2020-08-11] MEDS: levETIRAcetam 500 MG TAB PO SCH ×2 (08:19→20:33)
[2020-08-11] MEDS: FAMOTIDINE 20 MG TAB PO SCH (08:20)
[2020-08-11] MEDS: FOLIC ACID 1 MG TAB PO SCH (08:20)
[2020-08-11] MEDS: AMOXICILLIN 500 MG CAP PO SCH ×3 (08:21→20:34)
[2020-08-11] MEDS: FERROUS SULFATE 325 MG TAB PO SCH ×2 (18:24→21:02)
[2020-08-11] MEDS ORDERED: bisacodyL 5 MG TABEC PO SCH (20:00)
[2020-08-11] MEDS ORDERED: oxyCODONE/ACETAMINOPHEN 5mg/325mg TAB PO PRN (20:24)
[2020-08-12] MEDS: IBUPROFEN 600 MG TAB PO PRN ×4 (01:46→19:25)
[2020-08-12] MEDS: LEVOTHYROXINE SODIUM 50 MCG TABLET PO SCH (05:59)
[2020-08-12 07:18] LABS: Hematocrit (blood only) 21.6 % (37-47); Hemoglobin 7.3 g/dL (12.0-16.0); Mean Corpuscular Hgb Conc 33.8 g/dL (32-36); Mean Corpuscular Volume 94.7 fL (80-100); Platelet Count 228 K/uL (130-400); RDW Coefficient of Variation 15.5 % (11.5-14.5); RDW Standard Deviation 51.7 fL (36.4-46.3); Red Blood Count 2.28 M/uL (4.2-5.4)
[2020-08-12 07:20] LABS: Basophils # (auto) 0.03 K/uL (0-0.2); Basophils % (auto) 0.2 %; Eosinophils # (auto) 0.31 K/uL (0-0.5); Immature Granulocytes # (auto) 0.07 K/uL (0.00-0.02); Immature Granulocytes % (auto) 0.4 %; Lymphocytes # (auto) 5.28 K/uL (1.2-3.4); Lymphocytes % (auto) 33.8 %; Monocytes # (auto) 0.93 K/uL (0.11-0.59); Neutrophils # (auto) 8.98 K/uL (1.4-6.5); Neutrophils % (auto) 57.6 %; Poikilocytosis Present
[2020-08-12] MEDS: FOLIC ACID 1 MG TAB PO SCH (07:47)
[2020-08-12] MEDS: PRENATAL VITAMIN 1 TAB PO SCH (07:47)
[2020-08-12] MEDS: MAGNESIUM OXIDE 400 MG TAB PO SCH (07:47)
[2020-08-12] MEDS: FERROUS SULFATE 325 MG TAB PO SCH ×2 (07:47→21:25)
[2020-08-12] MEDS: DOCUSATE SODIUM 100 MG CAP PO SCH ×2 (07:47→21:26)
[2020-08-12] MEDS: AMOXICILLIN 500 MG CAP PO SCH ×3 (07:47→21:26)
[2020-08-12] MEDS: levETIRAcetam 500 MG TAB PO SCH ×2 (07:48→21:26)
[2020-08-12] MEDS: FAMOTIDINE 20 MG TAB PO SCH (07:48)
--- NOTE | 2020-08-12 10:25 | Obstetrical Progress Note ---
Date of Service August 12, 2020 Assessment & Plan Admission and Anticipated Discharge Date Admission Date: August 09, 2020 Subjective Patient is seen and examined. She feels well, no complaints. Ambulating without dizziness Voiding without difficulty Tolerating regular diet with out N&V Bleeding is minimal No fever/ chills/ CP/ SOB/ N&V/ Leg pain Breast feeding without problems Vital Signs Temp Pulse Resp BP Pulse Ox 08/12/20 07:40 36.6 C 89 18 101/67 98 08/11/20 23:10 36.5 C 84 16 102/67 98 08/11/20 20:10 36.5 C 98 H 16 125/60 98 08/11/20 17:00 36.8 C 93 H 20 106/71 08/11/20 15:57 36.9 C 107 H 20 128/71 100 08/11/20 12:30 36.8 C 101 H 18 105/72 Lab Results 08/09/20 08/09/20 08/09/20 Range/Units 10:20 10:20 10:22 WBC 11.26 H (4.8-10.8) K/uL RBC 3.96 L (4.2-5.4) M/uL Hgb 12.7 (12.0-16.0) g/dL Hct 36.3 L (37-47) % MCV 91.7 (80-100) fL MCH 32.1 (25-34) pg MCHC 35.0 (32-36) g/dL RDW Std Deviation 49.8 H (36.4-46.3) fL RDW Coeff of Shyam 14.8 H (11.5-14.5) % Plt Count 256 (130-400) K/uL MPV 11.6 H (7.4-10.4) fL Immature Gran % (Auto) % Neut % (Auto) % Lymph % (Auto) % Vigo % (Auto) % Eos % (Auto) % Baso % (Auto) % Neut # (Auto) (1.4-6.5) K/uL Lymph # (Auto) (1.2-3.4) K/uL Vigo # (Auto) (0.11-0.59) K/uL Eos # (Auto) (0-0.5) K/uL Baso # (Auto) (0-0.2) K/uL Immature Gran # (Auto) (0.00-0.02) K/uL Poikilocytosis Cord ABG pH (7.1-7.38) Cord ABG pCO2 (39.1-73.5) mmHg Cord ABG pO2 (4.1-31.7) mmHg Cord ABG HCO3 (19.7-28.5) mmol/L Cord ABG Base Excess (-9-1.8) mEq/L Cord ABG O2 Sat (<60) % Cord VBG pH (7.20-7.44) Cord VBG pCO2 (30.4-57.2) mmHg Cord VBG pO2 (14.1-43.3) mmHg Cord VBG HCO3 (18.4-26.8) mmol/L Cord VBG Base Excess (-7.7-1.9) mEq/L Cord VBG O2 Sat (<68) % Barometric Pressure mm/Hg Blood Gas Comments [email or web address], [facility], NAAT NEGATIVE (NEGATIVE) 08/10/20 08/10/20 08/11/20 Range/Units 21:00 21:00 05:56 WBC 21.09 H (4.8-10.8) K/uL RBC 2.51 L (4.2-5.4) M/uL Hgb 7.9 L D (12.0-16.0) g/dL Hct 22.7 L (37-47) % MCV 90.4 (80-100) fL MCH 31.5 (25-34) pg MCHC 34.8 (32-36) g/dL RDW Std Deviation 49.1 H (36.4-46.3) fL RDW Coeff of Shyam 15.1 H (11.5-14.5) % Plt Count 225 (130-400) K/uL MPV 11.0 H (7.4-10.4) fL Immature Gran % (Auto) % Neut % (Auto) % Lymph % (Auto) % Vigo % (Auto) % Eos % (Auto) % Baso % (Auto) % Neut # (Auto) (1.4-6.5) K/uL Lymph # (Auto) (1.2-3.4) K/uL Vigo # (Auto) (0.11-0.59) K/uL Eos # (Auto) (0-0.5) K/uL Baso # (Auto) (0-0.2) K/uL Immature Gran # (Auto) (0.00-0.02) K/uL Poikilocytosis Cord ABG pH 7.13 (7.1-7.38) Cord ABG pCO2 60 (39.1-73.5) mmHg Cord ABG pO2 26 (4.1-31.7) mmHg Cord ABG HCO3 19 L (19.7-28.5) mmol/L Cord ABG Base Excess -10.9 L (-9-1.8) mEq/L Cord ABG O2 Sat < 60.0 (<60) % Cord VBG pH 7.28 (7.20-7.44) Cord VBG pCO2 37 (30.4-57.2) mmHg Cord VBG pO2 24 (14.1-43.3) mmHg Cord VBG HCO3 17 L (18.4-26.8) mmol/L Cord VBG Base Excess -8.9 L (-7.7-1.9) mEq/L Cord VBG O2 Sat < 60.0 (<68) % Barometric Pressure 731.1 731.3 mm/Hg Blood Gas Comments PHAN PHAN COVID-19 Eval Order SARS-CoV-2, RNA, NAAT (NEGATIVE) 08/12/20 Range/Units 06:26 WBC 15.60 H (4.8-10.8) K/uL RBC 2.28 L (4.2-5.4) M/uL Hgb 7.3 L (12.0-16.0) g/dL Hct 21.6 L (37-47) % MCV 94.7 (80-100) fL MCH 32.0 (25-34) pg MCHC 33.8 (32-36) g/dL RDW Std Deviation 51.7 H (36.4-46.3) fL RDW Coeff of Shyam 15.5 H (11.5-14.5) % Plt Count 228 (130-400) K/uL MPV 11.0 H (7.4-10.4) fL Immature Gran % (Auto) 0.4 % Neut % (Auto) 57.6 % Lymph % (Auto) 33.8 % Vigo % (Auto) 6.0 % Eos % (Auto) 2.0 % Baso % (Auto) 0.2 % Neut # (Auto) 8.98 H (1.4-6.5) K/uL Lymph # (Auto) 5.28 H (1.2-3.4) K/uL Vigo # (Auto) 0.93 H (0.11-0.59) K/uL Eos # (Auto) 0.31 (0-0.5) K/uL Baso # (Auto) 0.03 (0-0.2) K/uL Immature Gran # (Auto) 0.07 H (0.00-0.02) K/uL Poikilocytosis Present Cord ABG pH (7.1-7.38) Cord ABG pCO2 (39.1-73.5) mmHg Cord ABG pO2 (4.1-31.7) mmHg Cord ABG HCO3 (19.7-28.5) mmol/L Cord ABG Base Excess (-9-1.8) mEq/L Cord ABG O2 Sat (<60) % Cord VBG pH (7.20-7.44) Cord VBG pCO2 (30.4-57.2) mmHg Cord VBG pO2 (14.1-43.3) mmHg Cord VBG HCO3 (18.4-26.8) mmol/L Cord VBG Base Excess (-7.7-1.9) mEq/L Cord VBG O2 Sat (<68) % Barometric Pressure mm/Hg Blood Gas Comments COVID-19 Eval Order SARS-CoV-2, RNA, NAAT (NEGATIVE) PE: General: Alert, orientedx3, NAD Abd: soft, NT, fundus firm, below Umbilicus Perineum intact, Lochia rubra minimal Ext; NT, no edema AP: 30 yo s/p , ppd# 2 VSS Afebrile doing well Anemic: asymptomatic, on iron bid and PNV Discussed iron therapy versus blood transfusion, She has no symptoms and desires to try iron therapy and repeat H&H at noon today and DC home this evening. Continue routine care All questions were answered Discussed when to call Results & Data ([facility]) Vital Signs (Past 12 Hours) Vital Signs Temp Pulse Resp BP Pulse Ox 08/12/20 07:40 36.6 C 89 18 101/67 98 08/11/20 23:10 36.5 C 84 16 102/67 98
[2020-08-12 12:50] LABS: Hematocrit (blood only) 20.3 % (37-47); Hemoglobin 6.9 g/dL (12.0-16.0); Mean Corpuscular Hemoglobin 31.5 pg (25-34); Mean Corpuscular Volume 92.7 fL (80-100); Mean Platelet Volume 10.1 fL (7.4-10.4); Platelet Count 199 K/uL (130-400); RDW Coefficient of Variation 15.4 % (11.5-14.5); RDW Standard Deviation 51.8 fL (36.4-46.3); Red Blood Count 2.19 M/uL (4.2-5.4); White Blood Count 13.41 K/uL (4.8-10.8)
[2020-08-12 13:09] LABS: Basophils # (auto) 0.02 K/uL (0-0.2); Basophils % (auto) 0.1 %; Eosinophils # (auto) 0.25 K/uL (0-0.5); Eosinophils % (auto) 1.9 %; Immature Granulocytes # (auto) 0.05 K/uL (0.00-0.02); Immature Granulocytes % (auto) 0.4 %; Lymphocytes # (auto) 3.82 K/uL (1.2-3.4); Lymphocytes % (auto) 28.5 %; Monocytes # (auto) 0.64 K/uL (0.11-0.59); Monocytes % (auto) 4.8 %; Neutrophils # (auto) 8.63 K/uL (1.4-6.5); Neutrophils % (auto) 64.3 %; RBC Morphology Unremarkable
[2020-08-12] MEDS ORDERED: SODIUM CHLORIDE 0.9% 250 ML IV PRN (13:45)
[2020-08-12] MEDS ORDERED: diphenhydrAMINE Capsule 25 MG CAP PO ONE ×2 (14:20→22:29)
--- NOTE | 2020-08-12 14:23 | Obstetrical Progress Note ---
Date of Service August 12, 2020 Assessment & Plan Admission and Anticipated Discharge Date Admission Date: August 09, 2020 Subjective Repeat blood work is back Lab Results 08/09/20 08/09/20 08/09/20 Range/Units 10:20 10:20 10:22 WBC 11.26 H (4.8-10.8) K/uL RBC 3.96 L (4.2-5.4) M/uL Hgb 12.7 (12.0-16.0) g/dL Hct 36.3 L (37-47) % MCV 91.7 (80-100) fL MCH 32.1 (25-34) pg MCHC 35.0 (32-36) g/dL RDW Std Deviation 49.8 H (36.4-46.3) fL RDW Coeff of Shyam 14.8 H (11.5-14.5) % Plt Count 256 (130-400) K/uL MPV 11.6 H (7.4-10.4) fL Immature Gran % (Auto) % Neut % (Auto) % Lymph % (Auto) % [place] % (Auto) % Eos % (Auto) % Baso % (Auto) % Neut # (Auto) (1.4-6.5) K/uL Lymph # (Auto) (1.2-3.4) K/uL [place] # (Auto) (0.11-0.59) K/uL Eos # (Auto) (0-0.5) K/uL Baso # (Auto) (0-0.2) K/uL Immature Gran # (Auto) (0.00-0.02) K/uL RBC Morphology Poikilocytosis Cord ABG pH (7.1-7.38) Cord ABG pCO2 (39.1-73.5) mmHg Cord ABG pO2 (4.1-31.7) mmHg Cord ABG HCO3 (19.7-28.5) mmol/L Cord ABG Base Excess (-9-1.8) mEq/L Cord ABG O2 Sat (<60) % Cord VBG pH (7.20-7.44) Cord VBG pCO2 (30.4-57.2) mmHg Cord VBG pO2 (14.1-43.3) mmHg Cord VBG HCO3 (18.4-26.8) mmol/L Cord VBG Base Excess (-7.7-1.9) mEq/L Cord VBG O2 Sat (<68) % Barometric Pressure mm/Hg Blood Gas Comments COVID-19 Eval [email or web address] SARS-CoV-2, RNA, NAAT NEGATIVE (NEGATIVE) Crossmatch 08/10/20 08/10/20 08/11/20 Range/Units 21:00 21:00 05:56 WBC 21.09 H (4.8-10.8) K/uL RBC 2.51 L (4.2-5.4) M/uL Hgb 7.9 L D (12.0-16.0) g/dL Hct 22.7 L (37-47) % MCV 90.4 (80-100) fL MCH 31.5 (25-34) pg MCHC 34.8 (32-36) g/dL RDW Std Deviation 49.1 H (36.4-46.3) fL RDW Coeff of Shyam 15.1 H (11.5-14.5) % Plt Count 225 (130-400) K/uL MPV 11.0 H (7.4-10.4) fL Immature Gran % (Auto) % Neut % (Auto) % Lymph % (Auto) % [place] % (Auto) % Eos % (Auto) % Baso % (Auto) % Neut # (Auto) (1.4-6.5) K/uL Lymph # (Auto) (1.2-3.4) K/uL [place] # (Auto) (0.11-0.59) K/uL Eos # (Auto) (0-0.5) K/uL Baso # (Auto) (0-0.2) K/uL Immature Gran # (Auto) (0.00-0.02) K/uL RBC Morphology Poikilocytosis Cord ABG pH 7.13 (7.1-7.38) Cord ABG pCO2 60 (39.1-73.5) mmHg Cord ABG pO2 26 (4.1-31.7) mmHg Cord ABG HCO3 19 L (19.7-28.5) mmol/L Cord ABG Base Excess -10.9 L (-9-1.8) mEq/L Cord ABG O2 Sat < 60.0 (<60) % Cord VBG pH 7.28 (7.20-7.44) Cord VBG pCO2 37 (30.4-57.2) mmHg Cord VBG pO2 24 (14.1-43.3) mmHg Cord VBG HCO3 17 L (18.4-26.8) mmol/L Cord VBG Base Excess -8.9 L (-7.7-1.9) mEq/L Cord VBG O2 Sat < 60.0 (<68) % Barometric Pressure 731.1 731.3 mm/Hg Blood Gas Comments [facility] COVID-19 Eval Order SARS-CoV-2, RNA, NAAT (NEGATIVE) Crossmatch 08/12/20 08/12/20 08/12/20 Range/Units 06:26 10:30 12:36 WBC 15.60 H 13.41 H (4.8-10.8) K/uL RBC 2.28 L 2.19 L (4.2-5.4) M/uL Hgb 7.3 L 6.9 L* (12.0-16.0) g/dL Hct 21.6 L 20.3 L* (37-47) % MCV 94.7 92.7 (80-100) fL MCH 32.0 31.5 (25-34) pg MCHC 33.8 34.0 (32-36) g/dL RDW Std Deviation 51.7 H 51.8 H (36.4-46.3) fL RDW Coeff of Shyam 15.5 H 15.4 H (11.5-14.5) % Plt Count 228 199 (130-400) K/uL MPV 11.0 H 10.1 (7.4-10.4) fL Immature Gran % (Auto) 0.4 0.4 % Neut % (Auto) 57.6 64.3 % Lymph % (Auto) 33.8 28.5 % [place] % (Auto) 6.0 4.8 % Eos % (Auto) 2.0 1.9 % Baso % (Auto) 0.2 0.1 % Neut # (Auto) 8.98 H 8.63 H (1.4-6.5) K/uL Lymph # (Auto) 5.28 H 3.82 H (1.2-3.4) K/uL [place] # (Auto) 0.93 H 0.64 H (0.11-0.59) K/uL Eos # (Auto) 0.31 0.25 (0-0.5) K/uL Baso # (Auto) 0.03 0.02 (0-0.2) K/uL Immature Gran # (Auto) 0.07 H 0.05 H (0.00-0.02) K/uL RBC Morphology Unremarkable Poikilocytosis Present Cord ABG pH (7.1-7.38) Cord ABG pCO2 (39.1-73.5) mmHg Cord ABG pO2 (4.1-31.7) mmHg Cord ABG HCO3 (19.7-28.5) mmol/L Cord ABG Base Excess (-9-1.8) mEq/L Cord ABG O2 Sat (<60) % Cord VBG pH (7.20-7.44) Cord VBG pCO2 (30.4-57.2) mmHg Cord VBG pO2 (14.1-43.3) mmHg Cord VBG HCO3 (18.4-26.8) mmol/L Cord VBG Base Excess (-7.7-1.9) mEq/L Cord VBG O2 Sat (<68) % Barometric Pressure mm/Hg Blood Gas Comments COVID-19 Eval Order SARS-CoV-2, RNA, NAAT (NEGATIVE) Crossmatch See Detail H&H is a little lower than before. Patient ambulated without dizziness but she feels tired exhausted when she is working around baby and standing. Discussed the risk of blood transfusion including but not limited to infection, mild and severe reactions, fluid overload patient understands all she spoke with her and they decided to go ahead with blood transfusion. We we will transfuse 2 units of packed red blood cell and repeat H&H and possible discharge tonight per patient request. Results & Data ([facility]) Vital Signs (Past 12 Hours) Vital Signs Temp Pulse Resp BP Pulse Ox 08/12/20 07:40 36.6 C 89 18 101/67 98
[2020-08-12] MEDS: ACETAMINOPHEN 325 MG TAB PO PRN ×2 (15:46→23:40)
[2020-08-12] MEDS ORDERED: ONDANSETRON 4 MG OD TAB PO PRN (22:15)
[2020-08-13] MEDS ORDERED: SODIUM CHLORIDE 0.9% 250 ML IV PRN (02:35)
[2020-08-13] MEDS: IBUPROFEN 600 MG TAB PO PRN (02:45)
[2020-08-13] MEDS: LEVOTHYROXINE SODIUM 50 MCG TABLET PO SCH (07:17)
--- NOTE | 2020-08-13 08:03 | Obstetrical Progress Note ---
Date of Service August 13, 2020 Subjective Ambulation: ambulating normally Voiding: no voiding problems Passing Gas:: Yes Diet Tolerance:: regular diet Lochia:: Small Feeding Type:: breast feeding doing well no dizziness or SOB out of bed tolerating diet no edema neg Mehran's for d/c today Results & Data ([facility]) Vital Signs (Past 12 Hours) Vital Signs Temp Pulse Pulse Resp BP BP BP 08/13/20 06:55 36.6 C 70 16 118/70 08/13/20 05:54 36.7 C 83 16 114/73 08/13/20 04:59 36.9 C 76 76 16 115/74 115/74 08/13/20 04:54 36.9 C 88 16 103/66 08/13/20 04:24 37 C 80 80 16 116/74 116/74 08/13/20 04:09 36.9 C 76 16 112/72 08/13/20 03:56 36.9 C 88 16 103/66 08/13/20 03:10 36.9 C 83 83 16 115/69 115/69 08/13/20 02:11 36.8 C 90 90 16 114/76 114/76 08/13/20 01:10 36.6 C 86 86 16 106/67 106/67 08/13/20 00:40 36.7 C 87 87 16 117/76 117/76 08/13/20 00:25 36.5 C 92 H 16 104/69 08/13/20 00:08 36.7 C 94 H 18 116/76 08/12/20 22:50 36.8 C 87 16 115/73 Pulse Ox 08/13/20 06:55 99 08/13/20 05:54 98 08/13/20 04:59 99 08/13/20 04:54 97 08/13/20 04:24 98 08/13/20 04:09 98 08/13/20 03:56 97 08/13/20 03:10 98 08/13/20 02:11 98 08/13/20 01:10 99 08/13/20 00:40 98 08/13/20 00:25 96 08/13/20 00:08 98 08/12/20 22:50 99 Laboratory Results 08/09/20 08/09/20 08/09/20 10:20 10:20 10:22 WBC 11.26 H RBC 3.96 L Hgb 12.7 Hct 36.3 L MCV 91.7 MCH 32.1 MCHC 35.0 RDW Std Deviation 49.8 H RDW Coeff of Shyam 14.8 H Plt Count 256 MPV 11.6 H Immature Gran % (Auto) Neut % (Auto) Lymph % (Auto) [place] % (Auto) Eos % (Auto) Baso % (Auto) Neut # (Auto) Lymph # (Auto) [place] # (Auto) Eos # (Auto) Baso # (Auto) Immature Gran # (Auto) RBC Morphology Poikilocytosis Cord ABG pH Cord ABG pCO2 Cord ABG pO2 Cord ABG HCO3 Cord ABG Base Excess Cord ABG O2 Sat Cord VBG pH Cord VBG pCO2 Cord VBG pO2 Cord VBG HCO3 Cord VBG Base Excess Cord VBG O2 Sat Barometric Pressure Blood Gas Comments COVID-19 Eval [facility] SARS-CoV-2, RNA, NAAT NEGATIVE Blood Type Blood Type Recheck Antibody Screen Crossmatch 08/10/20 08/10/20 08/11/20 21:00 21:00 05:56 WBC 21.09 H RBC 2.51 L Hgb 7.9 L D Hct 22.7 L MCV 90.4 MCH 31.5 MCHC 34.8 RDW Std Deviation 49.1 H RDW Coeff of Shyam 15.1 H Plt Count 225 MPV 11.0 H Immature Gran % (Auto) Neut % (Auto) Lymph % (Auto) [place] % (Auto) Eos % (Auto) Baso % (Auto) Neut # (Auto) Lymph # (Auto) [place] # (Auto) Eos # (Auto) Baso # (Auto) Immature Gran # (Auto) RBC Morphology Poikilocytosis Cord ABG pH 7.13 Cord ABG pCO2 60 Cord ABG pO2 26 Cord ABG HCO3 19 L Cord ABG Base Excess -10.9 L Cord ABG O2 Sat < 60.0 Cord VBG pH 7.28 Cord VBG pCO2 37 Cord VBG pO2 24 Cord VBG HCO3 17 L Cord VBG Base Excess -8.9 L Cord VBG O2 Sat < 60.0 Barometric Pressure 731.1 731.3 Blood Gas Comments [facility] COVID-19 Eval Order SARS-CoV-2, RNA, NAAT Blood Type Blood Type Recheck Antibody Screen Crossmatch 08/12/20 08/12/20 08/12/20 06:26 12:36 12:36 WBC 15.60 H 13.41 H RBC 2.28 L 2.19 L Hgb 7.3 L 6.9 L* Hct 21.6 L 20.3 L* MCV 94.7 92.7 MCH 32.0 31.5 MCHC 33.8 34.0 RDW Std Deviation 51.7 H 51.8 H RDW Coeff of Shyam 15.5 H 15.4 H Plt Count 228 199 MPV 11.0 H 10.1 Immature Gran % (Auto) 0.4 0.4 Neut % (Auto) 57.6 64.3 Lymph % (Auto) 33.8 28.5 [place] % (Auto) 6.0 4.8 Eos % (Auto) 2.0 1.9 Baso % (Auto) 0.2 0.1 Neut # (Auto) 8.98 H 8.63 H Lymph # (Auto) 5.28 H 3.82 H [place] # (Auto) 0.93 H 0.64 H Eos # (Auto) 0.31 0.25 Baso # (Auto) 0.03 0.02 Immature Gran # (Auto) 0.07 H 0.05 H RBC Morphology Unremarkable Poikilocytosis Present Cord ABG pH Cord ABG pCO2 Cord ABG pO2 Cord ABG HCO3 Cord ABG Base Excess Cord ABG O2 Sat Cord VBG pH Cord VBG pCO2 Cord VBG pO2 Cord VBG HCO3 Cord VBG Base Excess Cord VBG O2 Sat Barometric Pressure Blood Gas Comments COVID-19 Eval Order SARS-CoV-2, RNA, NAAT Blood Type Blood Type Recheck A Positive Antibody Screen Crossmatch 08/12/20 14:07 WBC RBC Hgb Hct MCV MCH MCHC RDW Std Deviation RDW Coeff of Shyam Plt Count MPV Immature Gran % (Auto) Neut % (Auto) Lymph % (Auto) [place] % (Auto) Eos % (Auto) Baso % (Auto) Neut # (Auto) Lymph # (Auto) [place] # (Auto) Eos # (Auto) Baso # (Auto) Immature Gran # (Auto) RBC Morphology Poikilocytosis Cord ABG pH Cord ABG pCO2 Cord ABG pO2 Cord ABG HCO3 Cord ABG Base Excess Cord ABG O2 Sat Cord VBG pH Cord VBG pCO2 Cord VBG pO2 Cord VBG HCO3 Cord VBG Base Excess Cord VBG O2 Sat Barometric Pressure Blood Gas Comments COVID-19 Eval Order SARS-CoV-2, RNA, NAAT Blood Type A Positive Blood Type Recheck Antibody Screen NEGATIVE Crossmatch See Detail
[2020-08-13 09:08] LABS: Hematocrit (blood only) 30.5 % (37-47); Hemoglobin 10.4 g/dL (12.0-16.0); Mean Corpuscular Hemoglobin 30.7 pg (25-34); Mean Corpuscular Hgb Conc 34.1 g/dL (32-36); Mean Platelet Volume 10.6 fL (7.4-10.4); Nucleated RBC # (auto) 0.08 K/uL (0-0); Nucleated RBC % (auto) 0.5 %; Platelet Count 213 K/uL (130-400); RDW Coefficient of Variation 15.6 % (11.5-14.5); RDW Standard Deviation 50.9 fL (36.4-46.3); Red Blood Count 3.39 M/uL (4.2-5.4); White Blood Count 14.76 K/uL (4.8-10.8)
[2020-08-13 09:21] LABS: ALC (manual) 2.98 K/uL (1.2-3.4); ANC (manual) 11.38 K/uL (1.4-6.5); Lymphocytes # (manual) 2.98 K/uL (1.2-3.4); Lymphocytes % (manual) 20.2 %; Metamyelocytes # (manual) 0.13 K/uL (0-0); Metamyelocytes % (manual) 0.9 %; Monocytes # (manual) 0.27 K/uL (0.11-0.59); Monocytes % (manual) 1.8 %; Neutrophils # (manual) 11.38 K/uL (1.4-6.5); Neutrophils % (manual) 77.1 %
[2020-08-13] MEDS: FAMOTIDINE 20 MG TAB PO SCH (09:29)
[2020-08-13] MEDS: MAGNESIUM OXIDE 400 MG TAB PO SCH (09:29)
[2020-08-13] MEDS: FERROUS SULFATE 325 MG TAB PO SCH (09:30)
[2020-08-13] MEDS: PRENATAL VITAMIN 1 TAB PO SCH (09:30)
[2020-08-13] MEDS: FOLIC ACID 1 MG TAB PO SCH (09:30)
[2020-08-13] MEDS: DOCUSATE SODIUM 100 MG CAP PO SCH (09:30)
[2020-08-13] MEDS: AMOXICILLIN 500 MG CAP PO SCH (09:30)
[2020-08-13] MEDS: levETIRAcetam 500 MG TAB PO SCH (09:30)
--- NOTE | 2020-08-16 11:32 | Discharge Summary (DS) ---
DATE OF ADMISSION: 08/09/2020 DATE OF DISCHARGE: 08/13/2020 DATE OF PROCEDURE: 08/11/2020 HOSPITAL COURSE: The patient is a 30-year-old female who delivered via an uncomplicated spontaneous vaginal delivery on 08/10/2020. After a significant amount of time after the delivery, the placenta w as not delivered. She was taken to the OR for removal of placenta manually. The patient had epidura l and MAC anesthesia. She had adequate analgesia. A gloved hand was placed in the vagina and the pl acenta was grasped and manually removed entirely. Cytotec was placed rectally at the end of the proc edure. This procedure went without difficulty or complications. The patient was subsequently discha rged home 08/13/2020 in stable condition. Home going instructions were given. Condition on discharge was stable. Regular diet on discharge and followup will be in the office in 1 week. Job ID: [id number]
--- NOTE | 2020-08-17 15:24 | Coding Query ---
ANEMIA To promote full compliance with coding requirements relating to patient care, physician participation is requested in all cases of mobile application engineer uncertainty. Please assist us with the question(s) below: Coding Question(s): The record reflects the following clinical findings: Hgb 6.9, Hct 20.3, transfused 2 units PRBCs. If these findings are indicative of anemia, please specify the known or suspected type by placing an "X" within the parenthesis (x). If other, please document type. Examples are: (x) Acute blood loss anemia ( ) Acute Postoperative blood loss anemia ( ) Acute postoperative anemia due to dilutional fluids ( ) Chronic blood loss anemia ( ) Anemia of chronic disease ( ) Aplastic anemia ( ) Anemia due to renal disease ( ) Anemia in neoplastic disease ( ) Iron deficient anemia ( ) Anemia, unspecified or other ( ) Other: (please specify) ( ) Unable to determine Thank you Francesca MANZO
== END 2020-08-13 10:26 | disposition home or self-care (01) | DRG 806 ==
LOC: 4S1 07:55 → 4S2 10:39 → 4S1 08-10 04:09 → 4S2 08-11 01:38

== ENCOUNTER 2023-07-04 05:54 | Inpatient (IN) ==
[2023-07-04] MEDS ORDERED: OXYTOCIN 30 UNITS/NSS 30 UNITS/500 ML BAG IV PRN ×2 (07:21→14:59)
[2023-07-04] MEDS ORDERED: LIDOCAINE 1% LOCAL 20 ML VIAL INFIL PRN (07:21)
--- NOTE | 2023-07-04 07:26 | Obstetrical Progress Note ---
Date of Service July 04, 2023 Assessment & Plan (1) premature rupture of membranes (PPROM) delivered, current h ospitalization: Plan: 33yo @ 36+ week PPROM at 05;00 today- clear fluid On arrival to L&D FHR; CAT1 Cx Minimal VE; Minimal pooling in vagina Nitrazine and Amnio sure +ve Cervix; closed/thick GBS culx obtained Bedside sono: VT Plan Admit BMTX treatment PCN for GBS prophylaxis anticipate VD Results & Data Vital Signs (Past 12 Hours) Vital Signs Temp Pulse Resp BP 07/04/23 06:17 37.0 C 18 07/04/23 06:07 86 134/84
[2023-07-04 08:03] LABS: Hematocrit (blood only) 38.2 % (37.0-47.0); Hemoglobin 13.3 g/dl (12.0-16.0); Mean Corpuscular Hemoglobin 30.6 pg (25.0-34.0); Mean Corpuscular Hgb Conc 34.8 g/dL (32.0-36.0); Mean Corpuscular Volume 87.8 fL (80.0-100.0); Mean Platelet Volume 11.3 fL (9.4-12.4); Platelet Count 241 K/uL (130-400); RDW Coefficient of Variation 13.8 % (11.5-14.5); RDW Standard Deviation 43.8 fL (36.4-46.3); Red Blood Count 4.35 M/uL (4.20-5.40); White Blood Count 15.41 K/ul (4.8-10.8)
[2023-07-04] MEDS: PENICILLIN GK 6 MU in DEXTROSE 5% 250 ML IV STA (08:16)
[2023-07-04] MEDS: LACTATED RINGER'S 1,000 ML IV PRN (08:16)
[2023-07-04] MEDS: BETAMETH SOD PHOS/ACETATE IA 6 MG/ML IM STA (08:23)
--- NOTE | 2023-07-04 08:56 | Obstetrical Progress Note ---
Date of Service July 04, 2023 Subjective Patient is seen and examined Admitted by Dr Rivers this morning for PPROM at 36.4 weeks Has been leaking clear fluids since then GBS unknown Received 1st dose of PCN Feels irregular but painful contractions, 7/10 FHR Categ I Chaires ctxs q 6-10 min VE; 3-4 cm/ 50%/ -4, posterior, Vertex presentation was confirmed by US Discussed IOL/ Augmentation of labor with low dose Oxytocin to decrease the risk of intraamniotic infection and she agrees All questions were answered. Results & Data Vital Signs (Past 12 Hours) Vital Signs Temp Pulse Resp BP 07/04/23 08:06 82 119/70 07/04/23 06:17 37.0 C 18 07/04/23 06:07 86 134/84
[2023-07-04] MEDS ORDERED: LEVOTHYROXINE SODIUM 75 MCG TABLET PO SCH (09:00)
[2023-07-04] MEDS: levETIRAcetam 500 MG TAB PO SCH ×2 (09:09→20:28)
[2023-07-04] MEDS: MAGNESIUM OXIDE 400 MG TAB PO SCH (09:10)
[2023-07-04] MEDS: CHOLECALCIFEROL 25 MCG (1000 UNITS) TAB PO SCH (09:10)
[2023-07-04] MEDS: PRENATAL VITAMIN 1 TAB PO SCH (09:11)
[2023-07-04] MEDS: FAMOTIDINE 20 MG TAB PO SCH (09:11)
[2023-07-04] MEDS: PYRIDOXINE HCL 50 MG TAB PO SCH (09:11)
[2023-07-04] MEDS ORDERED: ePHEDrine sulfate 50 MG/ML AMP ONE (09:28)
[2023-07-04] MEDS: OXYTOCIN 30 UNITS/NSS 30 UNITS/500 ML BAG IV PRN (09:30)
[2023-07-04] MEDS ORDERED: ONDANSETRON INJ 2 MG/ML 2 ML VIAL IV PRN (09:43)
[2023-07-04] MEDS ORDERED: fentANYL 2 MCG/ML BUPIVacaine 0.125%-NSS 100ML BAG EPI PRN (09:43)
[2023-07-04] MEDS ORDERED: fentaNYL citrate PF 100 MCG/2 ML VIAL EPI PRN (09:43)
[2023-07-04] MEDS ORDERED: SODIUM CHLORIDE 0.9% PF INJ 10 ML VIAL EPI STA (09:43)
[2023-07-04] MEDS ORDERED: LIDOCAINE 2%/EPINEPHRINE 1:200,000 20 ML PF EPI STA (09:43)
[2023-07-04] MEDS ORDERED: ePHEDrine sulfate 50 MG/ML AMP IV PRN (09:43)
[2023-07-04] MEDS ORDERED: fentaNYL citrate PF 100 MCG/2 ML VIAL EPI STA (09:43)
[2023-07-04] MEDS ORDERED: NALOXONE HCL 0.4 MG/1 ML VIAL/CARP IV PRN (09:43)
[2023-07-04] MEDS ORDERED: SODIUM CHLORIDE 0.9% PF INJ 10 ML VIAL EPI PRN (09:43)
[2023-07-04] MEDS ORDERED: BUPIVACAINE 0.25% PF 30 ML VIAL EPI STA (09:43)
[2023-07-04] MEDS ORDERED: LIDOCAINE 2% MPF LOCAL 5 ML VIAL EPI PRN (09:43)
[2023-07-04] MEDS ORDERED: diphenhydrAMINE 50 MG/ML VIAL IV PRN (09:43)
[2023-07-04] MEDS ORDERED: NALBUPHINE HCL 5 MG in SYRINGE 0 ML IV PRN (09:43)
[2023-07-04] MEDS ORDERED: BUPIVACAINE 0.25% PF 30 ML VIAL EPI PRN (09:43)
[2023-07-04] MEDS ORDERED: NALOXONE HCL 1 MG in SODIUM CHLORIDE 0.9% 1,000 ML IV PRN (09:43)
[2023-07-04] MEDS ORDERED: ROPIVACAINE 0.5% PF 5 MG/ML 20 ML VIAL EPI PRN (09:43)
--- NOTE | 2023-07-04 09:51 | Anesthesiology Consultation ---
Date of Service July 04, 2023 Assessment & Plan (1) Encounter for pre-operative examination: Chart Review Chart Review: Patient NOT seen in Pre Admission Testing and Acceptable Risk for Labor Epidural Consults Requested none History Height/Weight Height: 5 ft 3 in Weight: 95.254 kg Allergies Allergy/AdvReac Type Severity Reaction Status Date / Time sumatriptan Allergy Mild could have Verified 07/04/23 06:12 caused pancreatitis in the past, SOB, HEADACHE topiramate Allergy Unknown UNKNOWN Verified 07/04/23 06:12 Medications Home Medications Medication Instructions Recorded Confirmed Last Taken cholecalciferol (vitamin D3) 50 2,000 units PO DAILY 11/30/17 07/04/23 07/03/23 mcg (2,000 unit) capsule famotidine 20 mg tablet 20 mg PO DAILY #90 tabs 07/24/19 07/04/23 07/03/23 magnesium oxide 250 mg PO DAILY 08/09/20 07/04/23 07/03/23 levetiracetam 500 mg tablet 500 mg PO .COMPLEX 90 days #270 05/14/23 07/04/23 07/03/23 (Keppra) tabs levothyroxine 75 mcg tablet 75 mcg PO DAILY 07/04/23 07/04/23 07/03/23 vit no.95-ferrous 1 tab PO DAILY 07/04/23 07/04/23 07/03/23 fumarate 28 mg-folic acid 800 mcg tablet () pyridoxine (vitamin B6) 100 mg 100 mg PO DAILY 07/04/23 07/04/23 07/03/23 tablet (Vitamin B-6) Active Medications Generic Name Dose Route Start Last Admin Trade Name Markq PRN Reason Stop Dose Admin Famotidine 20 mg 07/04/23 09:00 07/04/23 09:11 Famotidine 20 Mg Tab PO 08/03/23 08:59 Not Given DAILY GRETCHEN Lactated Ringer's 1,000 mls @ 125 mls/hr 07/04/23 07:21 07/04/23 09:41 Lr IV 07/06/23 07:20 999 mls/hr .Q8H PRN Infusion L&D Protocol Protocol Oxytocin 30 units in 500 mls @ 2 mls/hr 07/04/23 08:22 07/04/23 09:30 Pitocin 30 Units/Nss IV 07/06/23 08:21 0.12 units/hr .Q24H PRN 2 mls/hr Labor Induction/Augmentation Administration Protocol 0.12 UNITS/HR Levetiracetam 500 mg 07/04/23 09:00 07/04/23 09:09 Levetiracetam 500 Mg Tab PO 08/03/23 08:59 500 mg QAM GRETCHEN Administration Magnesium Oxide 400 mg 07/04/23 09:00 07/04/23 09:10 Magnesium Oxide 400 Mg Tab PO 08/03/23 08:59 400 mg DAILY GRETCHEN Administration Prenat Multivit/Roofing Plant Supervisor/Iron/Folic Ac 1 tab 07/04/23 09:00 07/04/23 09:11 Vitamin 1 Tab PO 08/03/23 08:59 Not Given DAILY GRETCHEN Pyridoxine HCl 100 mg 07/04/23 09:00 07/04/23 09:11 Pyridoxine Hcl 50 Mg Tab PO 08/03/23 08:59 Not Given DAILY GRETCHEN Vitamin D 50 mcg 07/04/23 09:00 07/04/23 09:10 Cholecalciferol 25 Mcg (1000 Units) Tab PO 08/03/23 08:59 50 mcg DAILY GRETCHEN Administration Past Medical History Medical History (Updated 07/04/23 @ 10:28 by Sharath Mojica MD) Encounter for pre-operative examination Hypothyroid Chronic migraine with aura Seizure disorder History of Lyme disease History of acute pancreatitis Radial head dislocation Past Family History Family History Mother Rheumatoid arthritis Crohn's disease Father Hypertension Past Surgical History right rib removal for thoracic outlet syndrome Past Anesthesia History No Hx of Anesthesia Complications and No Family Hx of Anesthesia Complications History of PONV No Hx of PONV and No Hx of Motion Sickness Social History Smoking Status: Never smoker Hx Alcohol Use: No Alcohol type: wine alcohol intake frequency: a few times a week Hx Substance Use: No substance use type: does not use Physical Exam Vital Signs Last Vital Signs Temp 36.7 C 07/04/23 08:00 Pulse 92 H 07/04/23 09:54 Resp 18 07/04/23 06:17 BP 118/70 07/04/23 09:04 Pulse Ox 100 07/04/23 09:54 Testing Laboratory Results 07/04/23 07:37 Blood Type Cancelled 07/04/23 07:37 Antibody Screen Cancelled 07/04/23 07:37
[2023-07-04] MEDS: BUPIVACAINE 0.25% PF 30 ML VIAL ONE (10:03)
[2023-07-04] MEDS: fentaNYL citrate PF 100 MCG/2 ML VIAL ONE (10:03)
[2023-07-04] MEDS: SODIUM CHLORIDE 0.9% PF INJ 10 ML VIAL ONE (10:04)
[2023-07-04] MEDS: LIDOCAINE 2%/EPINEPHRINE 1:200,000 20 ML PF ONE (10:21)
[2023-07-04] MEDS: fentANYL 2 MCG/ML BUPIVacaine 0.125%-NSS 100ML BAG ONE (10:28)
[2023-07-04] MEDS: PENICILLIN GK 3 MU in DEXTROSE 5% 100 ML IV PRN (11:30)
[2023-07-04] MEDS: LEVOTHYROXINE SODIUM 50 MCG TABLET PO SCH (12:32)
--- NOTE | 2023-07-04 12:34 | Obstetrical Progress Note ---
Date of Service July 04, 2023 Subjective Patient is reevaluated. Received epidural and comfortable now FHR has been having early decels with contractions, accelerations, moderate variability in between VE; 5/ 70%/ -2, head comes down to -1 with contraction, FHR had accel after VE Contractions q 3-5 min, Oxytocin is at 8 miu/min Continue to monitor closely Results & Data Vital Signs (Past 12 Hours) Vital Signs Temp Pulse Resp BP Pulse Ox 07/04/23 12:29 99 H 100 07/04/23 12:24 68 99 07/04/23 12:20 66 120/59 L 07/04/23 12:19 69 99 07/04/23 12:14 86 100 07/04/23 12:09 71 98 07/04/23 12:04 80 109/55 L 98 07/04/23 11:59 72 98 07/04/23 11:54 68 99 07/04/23 11:50 88 111/53 L 07/04/23 11:49 66 99 07/04/23 11:44 74 99 07/04/23 11:41 36.6 C 07/04/23 11:39 70 99 07/04/23 11:34 71 99 07/04/23 11:30 18 07/04/23 11:30 18 07/04/23 11:29 99 07/04/23 11:29 75 07/04/23 11:29 71 125/65 07/04/23 11:24 97 H 99 07/04/23 11:23 81 118/59 L 07/04/23 11:19 75 98 07/04/23 11:18 86 121/60 07/04/23 11:14 81 123/59 L 99 07/04/23 11:09 83 98 07/04/23 11:08 75 116/67 07/04/23 11:04 70 99 07/04/23 11:03 82 118/66 07/04/23 11:00 16 07/04/23 11:00 16 07/04/23 10:59 99 07/04/23 10:59 73 07/04/23 10:59 72 121/64 07/04/23 10:54 75 98 07/04/23 10:53 74 115/65 07/04/23 10:50 72 123/57 L 07/04/23 10:49 73 99 05/15/24 10:44 67 99 07/04/23 10:43 89 128/71 07/04/23 10:39 70 99 07/04/23 10:37 77 123/63 07/04/23 10:35 76 126/64 07/04/23 10:34 81 99 07/04/23 10:33 75 120/67 07/04/23 10:31 86 127/65 07/04/23 10:30 18 07/04/23 10:30 18 07/04/23 10:29 99 07/04/23 10:29 84 07/04/23 10:29 88 121/70 07/04/23 10:27 86 123/69 07/04/23 10:25 73 121/66 07/04/23 10:24 72 99 07/04/23 10:23 71 16 113/68 07/04/23 10:22 85 117/72 07/04/23 10:20 18 07/04/23 10:20 18 07/04/23 10:19 36.5 C 83 18 93/64 L 100 07/04/23 10:17 93 H 134/69 07/04/23 10:14 84 100 07/04/23 10:09 98 H 100 07/04/23 10:04 97 H 100 07/04/23 10:03 83 142/69 H 07/04/23 09:59 80 100 07/04/23 09:54 92 H 100 07/04/23 09:49 78 100 07/04/23 09:44 91 H 100 07/04/23 09:39 68 100 07/04/23 09:34 77 100 07/04/23 09:04 71 118/70 07/04/23 08:06 82 119/70 07/04/23 08:00 36.7 C 07/04/23 06:17 37.0 C 18 07/04/23 06:07 86 134/84
[2023-07-04] MEDS ORDERED: HYDROCORTISONE ACETATE 25 MG SUPP PR PRN (14:59)
[2023-07-04] MEDS ORDERED: oxyCODONE/ACETAMINOPHEN 5mg/325mg TAB PO PRN (14:59)
[2023-07-04] MEDS ORDERED: bisacodyL 10 MG SUPP PR PRN (14:59)
--- NOTE | 2023-07-04 15:04 | Delivery Summary ---
Vaginal Delivery Summary Date of Service July 04, 2023 Vaginal Delivery Summary Patient was found to be fully dilated and desires to push. She pushed one contraction only and delivered the head and then followed by shoulders with no traction. There was a one time body cord around right shoulder and it was reduced easily. The baby was handed off to the mother. The cord was clampedx2 and cut at 1 minute. The vagina and perineum were checked and found to have 2nd degree perineal laceration. Rectal exam was done and noted good sphincter tone. The gloves were changes. Muscles around sphincter were held with Allis clamps and brought to the midline and reapproximated with figure 8 sutures x 2 to support the sphincter. The vaginal mucosa was repaired with 2/0 vicryl and skin on subcuticular fashion. Rectal exam was done and noted excellent sphincter tone and no sutures were felt. The placenta was delivered spontaneously as intact and complete. The uterus was explored and found to be empty. QBL was 140 ml. The fundus was firm The baby was a viable male infant, Apgars 9/9, the weight is pending The mother and the baby tolerated the procedure well. No complications happened and I was present during whole procedure.
[2023-07-04] MEDS: BENZOCAINE 20% SPRY 85 APPLN/85 GM CAN EXT PRN (15:56)
[2023-07-04] MEDS: IBUPROFEN 600 MG TAB PO PRN (15:56)
--- NOTE | 2023-07-04 16:17 | Anesthesia Procedure Note ---
Date of Service July 04, 2023 Anesthesia Post Epidural Note Vital Signs Vital Signs: Temp Pulse Resp BP Pulse Ox 36.7 C 69 16 113/66 99 07/04/23 14:45 07/04/23 16:04 07/04/23 15:30 07/04/23 16:04 07/04/23 15:19 Pain Intensity Lower Abdomen: Pain Intensity: 3 Notes Mental Status: alert / awake / arousable and participated in evaluation Nausea / Vomiting: adequately controlled Pain: adequately controlled Airway Patency, RR, SpO2: stable & adequate BP & HR: stable & adequate Hydration State: stable & adequate Neuraxial Anesthesia: was administered and sensory block is resolving Anesthetic Complications: no major complications apparent Epidural: Removed without complications and With tip intact
[2023-07-04] MEDS: DOCUSATE SODIUM 100 MG CAP PO SCH (20:28)
[2023-07-04] MEDS: DIPHTHER/TETAN/PERTUS Vaccine (Tdap, Adol/Adult) 0.5mL IM ONE (21:42)
[2023-07-04] MEDS: MEASLES, MUMPS & RUBELLA VIRUS VACCINE (MMR) 0.5ML VIAL SQ ONE (21:42)
--- OUTSIDE RECORDS SUMMARY | 2023-07-05 00:30 | External Medical Summary | Summary of Care ---
Author Name Unknown Organization [facility] Address [address] [facility] [place] [address] Phone [phone] Care Team Providers Care Animal Anatomist Name Role Phone Vladimir Watt MD Primary Care Provi asia Reason for Visit * Reason Onset Date Comments Triage Advice 06/29/2023 Encounter Details Date Type Department Care Team (Late st Contact Info) Description 06/29/2023 Telephone Gynecology/Obstetrics [facility] [address] [place] [address] Han Rowan MD [address] [place] [address] Triage Advice Allergies Active Allergy Reactions Criticality Noted Date Comments Sumatriptan Unknown 09/03/2014 Patient states possible cause of pancreatitis Topamax 06/07/2012 documented as of this encounter (statuses as of 06/29/2023) Medications Medication Sig Dispensed Refills Start Date End Date Status VITAMIN D3 1000 UNITS PO TABS None Entered 0 Active levETIRAcetam 250 MG Oral Tablet Take 2 Tablets by mouth. 1 tablet twice daily 0 Active famotidine 20 MG PO Take 1 Tablet by mouth in the morning. 0 Active Magnesium 100 MG Oral Capsule Take 2.5 Capsules by mouth in the morning. 0 Active B-Complex Oral Capsule Take by mouth. 0 Active /Iron Oral Tablet Take by mouth. 0 Active CoQ10 100 MG Oral Capsule Take by mouth. 0 Active Levothyroxine Sodium 50 MCG Oral Tablet (Levoxyl) Take 1 Tablet by mouth in the morning. (at least 30 min prior to breakfast or other meds). Take 2 capsules on Sunday and only.. 30 Tablet 2 06/15/2023 Active documented as of this encounter (statuses as of 06/29/2023) Active Problems Problem Noted Date Diagnosed Date Velamentous insertion of umbilical cord in secon d trimester 04/04/2023 Overview: Per MFM: growth scan at 28-30 weeks, weekly NSTs at 36 wks, consider delivery by AUGUSTO Last Assessment & Plan: I reviewed the ultrasound. The anatomy that was visualized appears unremarkable, including the cardiac anatomy. The biometry is appropriate for the gestational age and the overall estimated weight is consistent with the 49th percentile for the gestational age. There is a velementous insertion of the umbilical cord present. The placenta is posterior. CONSIDERATIONS: A velemantous cord insertion (VCI) was noted today with no evidence of vasa previa. There may be a higher risk for complications including IUGR with a VCI. This is also a risk factor for avulsion of the cord at delivery. RECOMMENDATIONS Ultrasound for growth at 28-32 weeks. Weekly NSTs to begin at 36 weeks. Consider delivery by her EDC. As required by [place] Act 112, the Patient Test Result Information Act, I have discussed with the patient the significant findings from the diagnostic imaging service performed today. They have expressed their understanding and signed the acknowledgement form. Supervision of high risk in first trim nessa 12/22/2022 Thoracic outlet syndrome 12/15/2022 Hypothyroid 12/15/2022 High-risk 12/15/2022 Obesity in , antepartum 12/15/2022 Overview: Pre gravid BMI: 31.8 Class 1 obesity Last Assessment & Plan: She presents for a anatomy survey secondary to class I obesity, hypothyroidism, and a history of a seizure disorder treated with Keppra. The father of the baby has a child from another relationship with CHD. Labs reviewed: -- TSH 2.98 on 02/09/23 -- early 1 hour GCT normal -- declined genetic screening We reviewed the results of today's ultrasound. The estimated weight is appropriate for gestational age. The visualized anatomy is unremarkable in appearance. There are no cardiac abnormalities appreciated in the images obtained. Some structures are suboptimally imaged secondary to position and poor acoustic windows. The amniotic fluid amount appears normal. We discussed that ultrasound is not able to identify all anomalies, but it is reassuring that no anomalies were seen today. We discussed some limitations of echocardiography. Hypothyroidism affecting 12/15/2022 Overview: Hypothyroid Managed with Levothyroxine 50 mcg daily Lab Results Component Value Date/Time TSH - [facility] 4.14 12/15/2022 09:44 AM TSH - [facility] 2.27 02/02/2020 09:23 AM 12/18/22: double levothyroxine dose 2 days a week, plan recheck in 4 weeks 01/15/2023: TSH 2.61, Ask-A-Doc to Endocrinology, no dose adjustment recommended. Repeat TFTs in second and third trimester Last Assessment & Plan: TSH Results: Lab Results Component Value Date/Time TSH - [facility] 1.83 05/09/2023 10:31 AM TSH - [facility] 2.98 02/09/2023 09:14 AM TSH - [facility] 2.61 01/15/2023 12:25 PM TSH - [facility] 2.27 02/02/2020 09:23 AM TSH - [facility] 5.04 (H) 12/01/2013 02:18 PM Family history of congenital heart defect 2022 Overview: Marcel's (FOB) daughter from another relationship ASD/VSD, surgical repair Last Assessment & Plan: Will need echo after anatomy survey due to half sister with CHD. History of hemorrhage 12/15/2022 Overview: Retained placenta, required D&C and transfusion Maternal seizure disorder 12/15/2022 Overview: History of migraines that were causing seizure like disorder Managed with Keppra Last Neurology visit: June 2022 ([facility]) Patient will continue on Keppra during Last seizure > 5 years ago Declines genetic consult at this time Last Assessment & Plan: CONSIDERATIONS: Explained to patient that more than 90% of women with epilepsy have a normal . Most women will have no alteration of their seizure pattern during , especially if medication noncompliance and sleep deprivation are minimized. Discussed that women with epilepsy have an increased risk for obstetrical complications including labor, delivery, , pre-eclampsia, , placental abruption, low weight infants, and lower scores, stillbirth, and maternal mortality. These risks can be minimized by preconception planning and careful management with anti-epileptic drugs during . Discussed that the overall rate of congenital abnormalities associated with maternal intake of AEDs is 6-8%, but there is no clear data indicating that any drug is without or has less risk in . It is therefore suggested that patients planning should be managed on the most effective anti-epileptic medications for their seizures. Monotherapy and the lowest possible drug dose may limit risk of teratogenicity. Patients who have been seizure free for two or more years should be considered for withdrawal of anti-epileptic drugs (AEDs) six months or more prior to planned conception. Discussed that we do not recommend making changes to anti-epileptic medication regimens for the purpose of reducing teratogenic risk in established . RECOMMENDATIONS: Recommend patient be monitored and medication managed/titrated by neurology throughout and period. Recommend MSAFP at 15-18 weeks Recommend Maternal Medicine ultrasound for anatomy at 19-20 weeks gestation. Recommend echo be done at approximately 24 weeks for patients with current idiopathic epilepsy (currently on medications or seizure within past 3 years). Maternal Medicine ultrasound for growth at 28-30 weeks for patients who have been actively seizing during or are taking antiepileptic medications. Explained that for women taking carbamazepine or valproate, we suggest higher dose folic acid supplementation, 4 mg per day, prior to conception and throughout first trimester . May then decrease to 1mg daily folic acid. Estimated Date of Delivery Comme nts Yes 07/28/2023 Based on last me nstrual period of 10/21/2022 documented as of this encounter (statuses as of 06/29/2023) Resolved Problems Problem Noted Date Diagnosed Date Resolved Date with 8 completed weeks gestation 12/22/2022 03/05/2023 Family history of congenital heart defect 03/26/2020 08/16/2021 Obesity in , antepartum 03/26/2020 08/16/2021 Last Assessment & Plan: She presents for a anatomy survey secondary to class I obesity, hypothyroidism, and a family history of congenital heart disease (half-sibling to the fetus). We reviewed the results of today's ultrasound. The estimated weight is appropriate for gestational age. The visualized anatomy is unremarkable in appearance, including the echocardiogram. Some structures are suboptimally imaged. The amniotic fluid amount appears normal. We discussed that ultrasound is not able to identify all anomalies, but it is reassuring that no anomalies were seen today. We discussed the limitations of today's imaging and reviewed that suspicion for anomalies, particularly CHD, are low. Supervision of normal first 01/01/2020 08/16/2021 Hypothyroidism affecting 01/01/2020 08/16/2021 Overview: Patient reports she was diagnosed with hypothyroidism approximately 8 years ago. She is managed on Levoxyl 50 mcg daily by PCP at [facility]. She reported normal TFT's in October of this year, however we do not have these records for review. Last Assessment & Plan: Her most recent TSH was normal on 02/02/20. I recommended repeat testing each trimester. Obesity, Class I, BMI 30-34.9 01/01/2020 05/24/2020 Overview: Pre-gravid BMI of 32.8. Patient has not yet completed early GCT. Last Assessment & Plan: DISCUSSION: 1. Discussed obstetrical risks associated with class I obesity (pre- BMI of 30 to 34.9) to include increased incidence of the following: spontaneous miscarriage, recurrent loss, diabetes in , hypertension/pre-eclampsia, IUFD, macrosomia and shoulder dystocia, hemorrhage or infection, venous thromboembolism, increased length of labor and delivery, complications with anesthesia, as well as a possibly increased risk of congenital anomalies (neural tube defects, cardiovascular, orofacial). 2. Reviewed that the accuracy of ultrasound at diagnosing anomalies is significantly decreased for women with an increased BMI. RECOMMENDATIONS: 1. Recommend restricting weight gain during to 11-20 pounds. Consider referral for nutrition consult. 2. Recommend evaluation for signs and symptoms (snoring, excessive daytime sleepiness witnessed apnea or unexplained hypoxia) of obstructive sleep apnea. If any of these are present, referral to Sleep Medicine specialist for further evaluation should be considered. 3. Recommend performing gestational diabetes mellitus screen at first visit and repeat again at 26-28 weeks if early screen is normal. 4. Recommend Maternal- Medicine ultrasound for anatomy at 20 weeks. Headache in 01/01/20202021 Overview: Patient follows with neurology and is managed on Keppra for cluster migraines which were causing seizure like activity. Last Assessment & Plan: 1. Reviewed relief measures for headaches in - adequate hydration, small frequent meals and Tylenol with a caffeinated beverage or Execerdin Tension Headache as needed. Advise limiting Tylenol to 1-2 doses per day. Medications containing aspirin, ibuprofen and other NSAIDs should be avoided. No contraindications for taking Fioricet as needed for severe headaches. Recommend Neurology consult if headache symptoms worsen. She should follow up with her primary provider regarding her current headache complaints. 2. Discussed that supplementation with magnesium 400 mg BID, co-q10 100 mg po TID, and riboflavin (vitamin B2) 400 mg daily may decrease the frequency of migraine headaches. These can be obtained over the counter at any pharmacy and are not contraindicated in . Supervision of high risk pre gnancy in first trimester 01/01/2020 05/24/2020 Overview: FOB's has a daughter from prior relationship with was diagnosed with ASD/VSD and repaired at 3 months old Last Assessment & Plan: In patients with a family medical history of isolated congenital heart defect in a family member that is not a first degree relative to the fetus, the baseline risk of congenital heart defect in this is not increased. Encounter for surveillance of nuvaring 11/04/2018 01/01/2020 Ovarian cyst 01/18/2007 05/24/2020 documented as of this encounter (statuses as of 06/29/2023) Immunizations Name Administration Dates Next Due TDAP (age 10 and older)(Boostrix) 05/09/2023,06/2020 documented as of this encounter Social History Tobacco Use Types Packs/Day Years Used Date Smoking Tobacco: Never Smokeless Tobacco: Never Alcohol Use Standard Drinks/Week Comments Yes 0 (1 standard drink = 0.6 oz pur e alcohol) socially PHQ-2 Answer Date Recorded PHQ Adult Total Score 0 05/09/2023 Hunger Vital Sign Answer Date Recorded Within the past 12 months, y ou worried that your food would run out before you got the money to buy more. Never true 12/16/19 23 Within the past 12 months, t he food you bought just didn't last and you didn't have money to get more. Never true 12/15/2022 [place] Depression Scale Answer Date Recorded [place] Depression Scale Total 5 05/09/2023 The thought of harming myself has occurred to me . Never 05/09/2023 Estimated Date of Delivery Comme nts Yes 07/28/2023 Based on last me nstrual period of 10/21/2022 Sex and Gender Information Value Date Recorded Sex Assigned at Female 12/15/2022 9:15 AM EDT Gender Identity Female 12/15/2022 9:15 AM EDT Sexual Orientation Straight 12/15/2022 9 :15 AM EDT Job Start Date Occupation Industry Not on file Not on file Not on file documented as of this encounter Miscellaneous Notes * Telephone Encounter - Hyacinth Ewing LPN - 06/29/2023 10:06 AM EDT 35w6d Patient was to have BENJAMIN today but appt was cancelled due to provider call-off. No available appts today in office. Pt reports feeling pressure in back, belly and rectal pressure throughout the day yesterday. Only occasional today, has only happened a few times. +FM. Denies vb or LOF. Denies headache or vomiting. +nausea, intermittent. Denies contractions. Minimal relief with tylenol. Advised to push fluids, take tylenol and a warm shower until further advise from leather production artisan physician documented in this encounter Plan of Treatment Upcoming Encounters Date Type Department Care Team (Late st Contact Info) Description 07/06/2023 10:00 AM EDT Office Visit Gynecology/Obstetrics [facility] John [address] [place], [place] [address] Lavonne Edward CRNP [address] [place] [address] Christina John Stress Tests Robyn [address] [place] [address] 07/13/2023 10:00 AM EDT Office Visit Gynecology/Obstetrics [facility] Alvaro [address] [place] [address] Lavonne Edward CRNP [address] [place] [address] Christina John Stress Tests Robyn [address] [place] [address] 07/20/2023 11:00 AM EDT Office Visit Gynecology/Obstetrics Idriselke Alvaro [address] [place] [address] Ching Moore CRNP [address] [place] [address] Christina John Stress Tests Robyn [address] [place] [address] 07/27/2023 11:15 AM EDT Office Visit Gynecology/Obstetrics Idris[facility] John [address] [place] [address] Ching Moore CRNP [address] [place] [address] Alvaro Non Stress Tests Robyn [address] [place] [address] Health Maintenance Due Date Last Done Comments Hepatitis B (1 of 3 - 19+ 3-dose series) 2009 COVID-19 Vaccine (1 - 2022-24 season) 2022 Influenza Vaccine (FLU shot) (Season Ended) 2023 Depression Screening 05/08/2024 05/09/2023 TSH 05/08/2024 05/09/2023, 01/20, 01/15/2023, Additional history exists Pap Smear 08/21/2025 08/21/2022, 05/2017, 08/30/2015, Additional history exists Cervical Cancer Screening 08/22/2027 HPV/Co-Test 08/22/2027 08/21/2022 DTaP,Tdap,and Td Vaccines (3 - Td or Tdap) 05/08/2033 05/09/2023, 05/24/2020 GARDASIL-HPV IMMUNIZATION SERIES Aged Out No longer eligible based on patient's age to complete this topic MENINGOCOCCAL (MENACTRA/MENVEO) Aged Out No longer eligible based on patient's age to complete this topic Pneumococcal Vaccine: Pediatrics (0 to 5 Years) and At-Risk Patients (6 to 64 Years) Aged Out No longer eligible based on patient's age to complete this topic documented as of this encounter Medical Devices Not on filedocumented as of this encounter Care Teams Animal Anatomist Relationship Specialty Start Date End Date Vladimir Watt MD [address] [place] [address] [place] [id number] PCP - General Internal Medicine 10/09/16 documented as of this encounter
--- OUTSIDE RECORDS SUMMARY | 2023-07-05 00:30 | External Medical Summary | Summary of Care ---
Author Name Unknown Organization [facility] Address [address] [place] [address] Phone [phone] Care Team Providers Care Mission Systems Engineer Name Role Phone Vladimir Watt MD Primary Care Provi asia Reason for Visit * Reason Comments Ultrasound Encounter Details Date Type Department Care Team (Late st Contact Info) Description 05/29/2023 11:30 AM EDT Office Visit Try Out Person Obstetrics Maternal Medicine, [place] [address] [place], [place] [id number] Manda Murdock, [address] [place] [address] Velamentous insertion of umbilical cord in second trimester*; Obesity in , antepartum; Maternal seizure disorder (HCC); Ultrasound for screening for growth restriction; 31 weeks gestation of Allergies Active Allergy Reactions Criticality Noted Date Comments Sumatriptan Unknown 09/03/2014 Patient states possible cause of pancreatitis Topamax 06/07/2012 documented as of this encounter (statuses as of 05/29/2023) Medications Medication Sig Dispensed Refills Start Date [...] Oral Tablet Take by mouth. 0 Active Levothyroxine Sodium 50 MCG Oral Tablet (Levoxyl) Take 1 Tablet by mouth in the morning. (at least 30 min prior to breakfast or other meds). Take 2 capsules on Sunday and only.. 30 Tablet 2 04/03/2023 07/02/2023 Active CoQ10 100 MG Oral Capsule Take by mouth. 0 Active documented as of this encounter (statuses as of 05/29/2023) Active Problems Problem Noted Date Diagnosed Date [...] with Keppra Last Neurology visit: June 2022 ([facility]) Patient will continue on Keppra during Last [...] as of this encounter (statuses as of 05/29/2023) Resolved Problems Problem Noted Date Diagnosed Date [...] Levoxyl 50 mcg daily by PCP at [facility]. She reported normal TFT's in October of [...] as of this encounter (statuses as of 05/29/2023) Immunizations Name Administration Dates Next Due TDAP [...] money to get more. Never true 12/15/2022 [place] Depression Scale Answer Date Recorded [place] Depression Scale Total 5 05/09/2023 The thought of harming myself has occurred to me . Never 05/09/2023 Estimated Date of Delivery Comme nts Yes 07/28/2023 Based on last me nstrual period of 10/21/2022 Sex and Gender Information Value Date Recorded Sex Assigned at Female 12/15/2022 9:15 AM EDT Gender Identity Female 12/15/2022 9:15 AM EDT Sexual Orientation Straight 12/15/2022 9: 15 AM EDT Job Start Date Occupation Industry Not on file Not on file Not on file documented as of this encounter Progress Notes * Manda Murdock DO - 05/29/2023 12:52 PM EDT Liane presented today at 31w3d for an ultrasound for the following indications: Velamentous insertion of umbilical cord in second trimester Obesity in , antepartum Maternal seizure disorder (HCC) Ultrasound for screening for growth restriction 31 weeks gestation of Ultrasound summary: Patient presented at 31w 3d for growth assessment. Normal growth with EFW 1758 g at 37%ile. Normal MARY at 14.8 cm. Cephalic presentation. I reviewed the ultrasound images. Liane was given the opportunity to meet with me if she had any questions. Please refer to the ultrasound report for additional details about today's ultrasound examination. RECOMMENDATIONS: Follow up with MFM for ultrasound as clinically indicated. Weekly NSTs at 36 weeks with delivery by EDC. See prior formal MFM consultation note. Thank you for allowing us to participate in the care of this patient. Please call with any questions. Manda Murdock DO 05/29/2023 12:52 PM documented in this encounter Miscellaneous Notes * Assessment & Plan Note - Manda Murdock DO - 05/29/2023 12:52 PM EDT Associated Problem(s): Hypothyroidism affecting TSH Results: Lab Results Component Value Date/Time TSH - [facility] 1.83 05/09/2023 10:31 AM TSH - [facility] 2.98 02/09/2023 09:14 AM TSH - [facility] 2.61 01/15/2023 12:25 PM TSH - [facility] 2.27 02/02/2020 09:23 AM TSH - [facility] 5.04 (H) 12/01/2013 02:18 PM documented in this encounter Plan of Treatment Upcoming Encounters Date Type Department Care Team (Late st Contact Info) Description 06/15/2023 8:45 AM EDT Office Visit Gynecology/Obstetrics Jass John [address] [place] [address] Lavonne Edward CRNP [address] [place] [address] 07/06/2023 10:00 AM EDT Office Visit Gynecology/Obstetrics Jass John [address] [place] [address] Lavonne Edward CRNP [address] [place] [address] Christina John Stress Tests Robyn [address] [place] [address] 07/13/2023 10:00 AM EDT Office Visit Gynecology/Obstetrics Jass John [address] [place] [address] Lavonne Edward CRNP [address] [place] [address] John, Non Stress Tests Robyn [address] [place] [address] 07/20/2023 11:00 AM EDT Office Visit Gynecology/Obstetrics Jass John [address] [place] [address] RobererhCing CRNP [address] [place] [address] Alvaro Non Stress Tests Robyn [address] [place] [address] Health Maintenance Due Date Last Done Comments Hepatitis B (1 of 3 - 19+ 3-dose series) 2009 COVID-19 Vaccine ( - 2022- season) 2022 Influenza Vaccine (FLU shot) (Season Ended) 2023 Depression Screening 05/08/2024 05/09/2023 TSH 05/08/2024 05/09/2023, 1203/2022, 01/15/2023, Additional history exists Pap Smear 08/21/2025 [...] Not on filedocumented as of this encounter Visit Diagnoses Diagnosis Velamentous insertion of umbilical cord in second trimester- Primary Other umbilical cord complications during labor and delivery, unspecified as to episode of care Obesity in , antepartum Obesity complicating , childbirth, or the puerperium, antepartum condition or complication Maternal seizure disorder (HCC) Epilepsy complicating , childbirth, or the puerperium, unspecified as to episode of care or not applicable Ultrasound for screening for growth restriction screening for growth retardation using ultrasonics 31 weeks gestation of state, incidental documented in this encounter Care Teams Mission Systems Engineer Relationship Specialty Start Date End Date Vladimir Watt MD [address] [place] [address] [place] [address] PCP - General Internal Medicine 10/09/16 documented as of this encounter
--- OUTSIDE RECORDS SUMMARY | 2023-07-05 00:30 | External Medical Summary | Summary of Care ---
Author Name Unknown Organization [facility] Address [address] [facility] [place] [address] Phone [phone] Care Team Providers Care Plant And Equipment Worker Name Role Phone Vladimir Watt MD Primary Care Provi asia Reason for Visit * Reason Onset Date Comments Order Request 06/06/2023 Encounter Details Date Type Department Care Team (Late st Contact Info) Description 06/06/2023 Telephone Gynecology/Obstetrics [facility] [address] [place] [address] Ching Moore CRNP [address] [place] [address] Order Request Allergies Active Allergy Reactions Criticality Noted Date Comments Sumatriptan Unknown 09/03/2014 Patient states possible cause of pancreatitis Topamax 06/07/2012 documented as of this encounter (statuses as of 06/06/2023) Medications Medication Sig Dispensed Refills Start Date [...] as of this encounter (statuses as of 06/06/2023) Active Problems Problem Noted Date Diagnosed Date [...] with Keppra Last Neurology visit: June 2022 ([facility]) Patient will continue on Keppra [...] as of this encounter (statuses as of 06/06/2023) Resolved Problems Problem Noted Date Diagnosed Date [...] Levoxyl 50 mcg daily by PCP at [facility]. She reported normal TFT's in October of [...] as of this encounter (statuses as of 06/06/2023) Immunizations Name Administration Dates Next Due TDAP [...] money to get more. Never true 12/15/2022 [place] Depression Scale Answer Date Recorded [place] Depression Scale Total 5 05/09/2023 The thought [...] encounter Miscellaneous Notes * Telephone Encounter - Ching Moore CRNP - 06/06/2023 10:51 AM EDT Received breast pump Rx from [employer]. Rx signed and placed in mail pile. JESSE Tan documented in this encounter Plan of Treatment Upcoming Encounters Date Type Department Care Team (Late st Contact Info) Description 06/15/2023 8:45 AM EDT Office Visit [facility] [address] [place] [address] Lavonne Edward CRNP [address] [place] [address] 07/06/2023 10:00 AM EDT Office Visit Gynecology/Obstetrics [facility]ass John [address] [place] [address] Lavonne Edward CRNP [address] [place], [place] [address] Alvaro Non Stress Tests Robyn [address] [place] [address] 07/13/2023 10:00 AM EDT Office Visit Gynecology/Obstetrics [facility] [address] [place] [address] Lavonne Edward CRNP [address] [place] [address] Christina John Stress Tests Robyn [address] [place] [address] 07/20/2023 11:00 AM EDT Office Visit Gynecology/Obstetrics [facility] [address] [place] [address] Backer, JESSE Delgado [address] [place] [address] Christina John Stress Tests Robyn [address] [place] [address] Health Maintenance Due Date Last Done Comments Hepatitis B (1 of 3 - 19+ 3-dose series) 2009 COVID-19 Vaccine ( - 2022- season) 2022 Influenza Vaccine (FLU shot) (Season Ended) 2023 Depression Screening 05/08/2024 05/09/2023 TSH 05/08/2024 05/09/2023, 1203/2022, 01/15/2023, Additional history exists Pap Smear 08/21/2025 08/21/2022, 09/0 05/2017, 08/30/2015, Additional history exists Cervical Cancer [...] filedocumented as of this encounter Care Teams Plant And Equipment Worker Relationship Specialty Start Date End Date Vladimir Watt MD [address] [place] [address] [place] [address] PCP - General Internal Medicine 10/09/16 documented as of this encounter
--- OUTSIDE RECORDS SUMMARY | 2023-07-05 00:30 | External Medical Summary | Summary of Care ---
Author Name Unknown Organization [facility] Address [address] [facility] [place] [address] Phone [phone] Care Team Providers Care Steel Chipper Name Role Phone Vladimir Watt MD Primary Care Provi asia Reason for Visit * Reason Onset Date Comments Triage Advice 06/29/2023 Encounter Details Date Type Department Care Team (Late st Contact Info) Description 06/29/2023 Telephone Gynecology/Obstetrics [facility] [address] [place] [address] Han Rowan MD [address] [place] [address] Triage Advice Allergies Active Allergy Reactions Criticality [...] with Keppra Last Neurology visit: June 2022 ([facility]) Patient will continue on Keppra during Last [...] Levoxyl 50 mcg daily by PCP at [facility]. She reported normal TFT's in October [...] money to get more. Never true 12/15/2022 [place] Depression Scale Answer Date Recorded [place] Depression Scale Total 5 05/09/2023 The thought [...] a warm shower until further advise from information technology technician physician documented in this encounter Plan of Treatment Upcoming Encounters Date Type Department Care Team (Late st Contact Info) Description 07/06/2023 10:00 AM EDT Office Visit Gynecology/Obstetrics [facility] [address] [place], [place] [address] Lavonne Edward CRNP [address] [place] [address] Christina John Stress Tests Robyn [address] [place] [address] 07/13/2023 10:00 AM EDT Office Visit Gynecology/Obstetrics [facility] Alvaro [address] [place] [address] Lavonne Edward CRNP [address] [place] [address] Christina John Stress Tests Robyn [address] [place] [address] 07/20/2023 11:00 AM EDT Office Visit Gynecology/Obstetrics [facility] Alvaro [address] [place] [address] Ching Moore CRNP [address] [place] [address] Christina John Stress Tests Robyn [address] [place] [address] 07/27/2023 11:15 AM EDT Office Visit Gynecology/Obstetrics [facility] [address] [place] [address] Ching Moore CRNP [address] [place] [address] Alvaro Non Stress Tests Robyn [address] [place] [address] Health Maintenance Due Date Last Done Comments [...] filedocumented as of this encounter Care Teams Steel Chipper Relationship Specialty Start Date End Date Vladimir Watt MD [address] [place] [address] [place] [address] PCP - General Internal Medicine 10/09/16 documented as of this encounter
--- OUTSIDE RECORDS SUMMARY | 2023-07-05 00:30 | External Medical Summary | Summary of Care ---
Author Name Unknown Organization [facility] Address [address] [facility] [place] [address] Phone [phone] Care Team Providers Care Respiratory Scientist Name Role Phone Vladimir Watt MD Primary Care Provi asia Reason for Visit * Reason Onset Date Comments Triage Advice 06/29/2023 Encounter Details Date Type Department Care Team (Late st Contact Info) Description 06/29/2023 Telephone Gynecology/Obstetrics [facility] [address] [place] [address] Han Rowan MD [address] [place] [address] Triage Advice Allergies Active Allergy Reactions Criticality [...] with Keppra Last Neurology visit: June 2022 ([facility]) Patient will continue on Keppra during Last [...] Levoxyl 50 mcg daily by PCP at [facility]. She reported normal TFT's in October of [...] money to get more. Never true 12/15/2022 [place] Depression Scale Answer Date Recorded [place] Depression Scale Total 5 05/09/2023 The thought [...] a warm shower until further advise from client technical professional physician documented in this encounter Plan of Treatment Upcoming Encounters Date Type Department Care Team (Late st Contact Info) Description 07/06/2023 10:00 AM EDT Office Visit Gynecology/Obstetrics [facility] [address] [place] [address] Lavonne Edward CRNP [address] [place] [address] Christina John Stress Tests Robyn [address] [place] [address] 07/13/2023 10:00 AM EDT Office Visit Gynecology/Obstetrics [facility] Alvaro [address] [place] [address] Lavonne Edward CRNP [address] [place] [address] Christina John Stress Tests Robyn [address] [place] [address] 07/20/2023 11:00 AM EDT Office Visit Gynecology/Obstetrics [facility]o [address] [place] [address] Ching Moore CRNP [address] [place] [address] Christina John Stress Tests Robyn [address] [place] [address] 07/27/2023 11:15 AM EDT Office Visit Gynecology/Obstetrics [facility] [address] [place] [address] Ching Moore CRNP [address] [place] [address] Alvaro Non Stress Tests Robyn [address] [place] [address] Health Maintenance Due Date Last Done Comments [...] filedocumented as of this encounter Care Teams Respiratory Scientist Relationship Specialty Start Date End Date Vladimir Watt MD [address] [place] [address] [place] [address] PCP - General Internal Medicine 10/09/16 documented as of this encounter
--- OUTSIDE RECORDS SUMMARY | 2023-07-05 00:30 | External Medical Summary | Summary of Care ---
Author Name Unknown Organization [facility] Address [address] [facility] [place] [address] Phone [phone] Care Team Providers Care Chassis Wirer Name Role Phone Vladimir Watt MD Primary Care Provi asia Reason for Visit * Reason Onset Date Comments Triage Advice 06/29/2023 Encounter Details Date Type Department Care Team (Late st Contact Info) Description 06/29/2023 Telephone Gynecology/Obstetrics [facility] [address] [place] [address] Han Rowan MD [address] [place] [address] Triage Advice Allergies Active Allergy Reactions Criticality [...] with Keppra Last Neurology visit: June 2022 ([facility]) Patient will continue on Keppra during [...] Levoxyl 50 mcg daily by PCP at [facility]. She reported normal TFT's in [...] money to get more. Never true 12/15/2022 [place] Depression Scale Answer Date Recorded [place] Depression Scale Total 5 05/09/2023 The thought [...] Encounter - Hyacinth Ewing LPN - 06/29/2023 12:06 PM EDT Patient aware and agreeable. Will notify office of any changes. * Telephone Encounter - Hyacinth Ewing LPN [...] a warm shower until further advise from permastone applicator physician documented in this encounter Plan of Treatment Upcoming Encounters Date Type Department Care Team (Late st Contact Info) Description 07/06/2023 10:00 AM EDT Office Visit Gynecology/Obstetrics [facility] John [address] [place] [address] Lavonne Edward CRNP [address] [place] [address] Christina John Stress Tests Robyn [address] [place] [address] 07/13/2023 10:00 AM EDT Office Visit Gynecology/Obstetrics Jass John [address] [place] [address] Lavonne Edward CRNP [address] [place] [address] Christina John Stress Tests Robyn [address] [place] [address] 07/20/2023 11:00 AM EDT Office Visit Gynecology/Obstetrics Jass John [address] [place] [address] Ching Moore CRNP [address] [place] [address] Alvaro Non Stress Tests Robyn [address] [place] [address] 07/27/2023 11:15 AM EDT Office Visit Gynecology/Obstetrics [facility]ons [address] [place] [address] Backer, JESSE Delgado [address] [place] [address] Alvaro, Non Stress Tests Robyn [address] [place] [address] Health Maintenance Due Date Last Done Comments Hepatitis B (1 of 3 - 19+ 3-dose series) 2009 COVID-19 Vaccine ( - 2022-24 season) 2022 Influenza Vaccine (FLU [...] filedocumented as of this encounter Care Teams Chassis Wirer Relationship Specialty Start Date End Date Vladimir Watt MD [address] [place] [address] [place] [address] PCP - General Internal Medicine 10/09/16 documented as of this encounter
--- OUTSIDE RECORDS SUMMARY | 2023-07-05 00:30 | External Medical Summary | Summary of Care ---
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 30 Tablet 2 06/15/2023 Active Levothyroxine Sodium 50 MCG Oral Tablet (Levoxyl) Take 1 Tablet by mouth in the morning. (at least 30 min prior to breakfast or other meds). Take 2 capsules on Sunday and only.. 30 Tablet 2 04/03/2023 06/15/2023 Discontinued (Refill) documented as of this encounter (statuses as of 06/15/2023) Active Problems Problem Noted Date Diagnosed Date [...] with Keppra Last Neurology visit: June 2022 ([facility]) Patient will continue on Keppra during [...] Comme nts Yes 07/28/2023 Based on last sd nstrual period of 10/21/2022 documented as of this encounter (statuses as of 06/15/2023) Resolved Problems Problem Noted Date Diagnosed Date [...] Levoxyl 50 mcg daily by PCP at [facility]. She reported normal TFT's in [...] as of this encounter (statuses as of 06/15/2023) Immunizations Name Administration Dates Next Due TDAP [...] money to get more. Never true 12/15/2022 [place] Depression Scale Answer Date Recorded [place] Depression Scale Total 5 05/09/2023 The thought [...] on file documented as of this encounter Last Filed Vital Signs Vital Sign Reading Time Taken Comments Blood Pressure 110/68 06/15/2023 8:41 AM EDT Pulse - - Temperature - - Respiratory Rate - - Oxygen Saturation - - Inhaled Oxygen Concentration - - Weight 92.5 kg (204 lb) 06/15/2023 8:41 AM EDT Height 160 cm (5' 3") 06/15/2023 8:41 AM EDT Body Mass Index 36.14 06/15/2023 8:41 AM EDT documented in this encounter Progress Notes * Lavonne Edward CRNP - 06/15/2023 8:54 AM EDT 33w6d No concerns. Baby is active. No contractions, bleeding, LOF. Recent growth u/s with MFM d/t velamentous cord insertion, no indication to return. To begin NSTs weekly at 36w. JESSE Longo * Nova Corona LPN - 06/15/2023 8:41 AM EDT 33w6d Denies any concerns documented in this encounter Plan of Treatment Upcoming Encounters Date Type Department Care Team (Late st Contact Info) Description 06/29/2023 9:15 AM EDT Office Visit Gynecology/Obstetrics [facility] [address] [place] [address] Altagracia Sin PA-C [address] [place] [address] 07/06/2023 10:00 AM EDT Office Visit Gynecology/Obstetrics [facility] [address] [place] [address] Lavonne Edward CRNP [address] [place] [address] Alvaro Non Stress Tests Robyn [address] [place] [address] 07/13/2023 10:00 AM EDT Office Visit Gynecology/Obstetrics [facility] John [address] [place] [address] Lavonne Edward CRNP [address] [place] [address] Alvaro Non Stress Tests Robyn [address] [place] [address] 07/20/2023 11:00 AM EDT Office Visit Gynecology/Obstetrics [facility] [address] [place] [address] Ching Moore CRNP [address] [place] [address] Alvaro Non Stress Tests Robyn [address] [place] [address] 07/27/2023 11:15 AM EDT Office Visit Gynecology/Obstetrics [facility] [address] [place] [address] Ching Moore CRNP [address] [place] [address] Christina John Stress Tests Robyn [address] [place] [address] Health Maintenance Due Date Last Done Comments Hepatitis B (1 of 3 - 19+ 3-dose series) 2009 COVID-19 Vaccine (2022- season) 2022 Influenza Vaccine (FLU shot) (Season [...] as of this encounter Visit Diagnoses Diagnosis High-risk in third trimester- Primary Obesity in , antepartum Obesity complicating , childbirth, or the puerperium, antepartum condition or complication Hypothyroidism affecting in third trimester Family history of congenital heart defect Family history of congenital anomalies History of hemorrhage Maternal seizure disorder (HCC) Epilepsy complicating , childbirth, or the puerperium, unspecified as to episode of care or not applicable Velamentous insertion of umbilical cord in second trimester Other umbilical cord complications during labor and delivery, unspecified as to episode of care documented in this encounter Care Teams Manager Story Relationship Specialty Start Date End Date Vladimir Watt MD [address] [place] [address] [place] [address] PCP - General Internal Medicine 10/09/16 documented as of this encounter
--- OUTSIDE RECORDS SUMMARY | 2023-07-05 00:31 | External Medical Summary | Summary of Care ---
Author Name Unknown Organization [facility] Address [address] [facility] [place] [address] Phone [phone] Care Team Providers Care Vp Care Management Name Role Phone Vladimir Watt MD Primary Care Provi asia Encounter Details Date Type Department Care Team (Late st Contact Info) Description 05/17/2023 Orders Only PATIENT PORTAL DO NOT DELETE THIS DEPT USED BY [place] [id number] Allergies Active Allergy Reactions Criticality Noted Date Comments Sumatriptan Unknown 09/03/2014 Patient states possible cause of pancreatitis Topamax 06/07/2012 documented as of this encounter (statuses as of 05/17/2023) Medications Medication Sig Dispensed Refills Start Date [...] only.. 30 Tablet 2 04/03/2023 07/02/2023 Active documented as of this encounter (statuses as of 05/17/2023) Active Problems Problem Noted Date Diagnosed Date [...] Results Component Value Date/Time TSH - [facility] 2.98 02/09/2023 09:14 AM TSH - [facility] 2.61 01/15/2023 12:25 PM TSH - [facility] 4.14 12/15/2022 09:44 AM TSH - [facility] 2.27 02/02/2020 09:23 AM TSH - [facility] 5.04 (H) 12/01/2013 02:18 PM Dose adjusted 04/03. Repeat TFTs ordered. Family history of congenital heart defect 2022 [...] with Keppra Last Neurology visit: June 2022 ([facility]) Patient will continue on Keppra during Last [...] as of this encounter (statuses as of 05/17/2023) Resolved Problems Problem Noted Date Diagnosed Date [...] Levoxyl 50 mcg daily by PCP at [facility]. She reported normal TFT's in [...] as of this encounter (statuses as of 05/17/2023) Immunizations Name Administration Dates Next Due TDAP [...] money to get more. Never true 12/15/2022 [place] Depression Scale Answer Date Recorded [place] Depression Scale Total 5 05/09/2023 The thought [...] on file documented as of this encounter Plan of Treatment Upcoming Encounters Date Type Department Care Team (Late st Contact Info) Description 05/22/2023 8:45 AM EDT Office Visit Gynecology/Obstetrics [facility] [address] [facility] [place] [address] Ching Moore CRNP [address] [place] [address] 05/29/2023 11:30 AM EDT Office Visit Warehouse Material Handler Obstetrics [facility], [place] [address] [place] [address] Manda Murdock DO [address] [place] [address] 05/29/2023 11:30 AM EDT Imaging Radiology [facility] [place], [place] [address] [place] [address] 06/15/2023 8:45 AM EDT Office Visit Gynecology/Obstetrics [facility] [address] [place] [address] Lavonne Edward CRNP [address] [place] [address] 06/29/2023 9:45 AM EDT Office Visit Warehouse Material Handler Obstetrics [facility] [place] [address] [place] [address] Chidi Ochoa, [address] [place] [address] 06/29/2023 9:45 AM EDT [facility] [place] [address] [place] [address] 07/06/2023 10:00 AM EDT Office Visit Gynecology/Obstetrics [facility] [address] [place] [address] Lavonne Edward CRNP [address] [place] [address] Alvaro Non Stress Tests Robyn [address] [place] [address] 07/13/2023 10:00 AM EDT Office Visit Gynecology/Obstetrics [facility] [address] [place] [address] Lavonne Edward CRNP [address] [place] [address] Alvaro Non Stress Tests Robyn [address] [place] [address] 07/20/2023 11:00 AM EDT Office Visit Gynecology/Obstetrics [facility] [address] [place] [address] Ching Moore CRNP [address] [place] [address] John, Non Stress Tests Robyn [address] [place] [address] Health Maintenance Due Date Last Done Comments Hepatitis B (1 of 3 - 19+ 3-dose series) 2009 COVID-19 Vaccine ( - 2022-24 season) 2022 Influenza Vaccine (FLU shot) (#1) 2022 Depression Screening 05/08/2024 05/09/2023 TSH 05/08/2024 05/09/2023, [...] filedocumented as of this encounter Care Teams Vp Care Management Relationship Specialty Start Date End Date Vladimir Watt MD [address] [place] [address] [place] [address] PCP - General Internal Medicine 10/09/16 documented as of this encounter
--- OUTSIDE RECORDS SUMMARY | 2023-07-05 00:31 | External Medical Summary | Summary of Care ---
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 trimester; Family history of congenital heart defect; History of hemorrhage; Maternal seizure disorder (HCC); Velamentous insertion of umbilical cord in second trimester Allergies Active Allergy Reactions Criticality Noted Date Comments Sumatriptan Unknown 09/03/2014 Patient states possible cause of pancreatitis Topamax 06/07/2012 documented as of this encounter (statuses as of 05/22/2023) Medications Medication Sig Dispensed Refills Start Date [...] as of this encounter (statuses as of 05/22/2023) Active Problems Problem Noted Date Diagnosed Date [...] with Keppra Last Neurology visit: June 2022 ([facility]) Patient will continue on Keppra during Last [...] as of this encounter (statuses as of 05/22/2023) Resolved Problems Problem Noted Date Diagnosed Date [...] 50 mcg daily by PCP at [facility]. She reported normal TFT's in October [...] as of this encounter (statuses as of 05/22/2023) Immunizations Name Administration Dates Next Due TDAP [...] money to get more. Never true 12/15/2022 [place] Depression Scale Answer Date Recorded [place] Depression Scale Total 5 05/09/2023 The thought [...] Sign Reading Time Taken Comments Blood Pressure 106/68 05/22/2023 8:41 AM EDT Pulse - - Temperature - - Respiratory Rate - - Oxygen Saturation - - Inhaled Oxygen Concentration - - Weight 91 kg (200 lb 9.6 oz) 05/22/2023 8:41 AM EDT Height - - Body Mass Index 35.53 05/09/2023 9:35 AM EDT documented in this encounter Progress Notes * Ching Moore CRNP - 05/22/2023 8:54 AM EDT 30w3d Doing well, good movement. Denies ctx/leaking. Follows with MFM. Aware of their recommendation for weekly NSTs at 36 weeks due to velamentous cord insertion. TSH normal. Notes itching on back, arms. Not on palms/soles of feed. Reviewed remedies. 2 week return JESSE Tan * Nova Syed LPN - 05/22/2023 8:41 AM EDT 30w3d Denies vaginal bleeding/rom + movement No new concerns documented in this encounter Plan of Treatment Upcoming Encounters Date Type Department Care Team (Late st Contact Info) Description 05/29/2023 11:30 AM EDT Office Visit Iron And Steel Work Supervisor Obstetrics Maternal Medicine, [address] [address] Manda Murdock, [facility] [place] [address] 05/29/2023 11:30 AM EDT Imaging Radiology [place] [address] [place] [address] 06/15/2023 8:45 AM EDT Office Visit Gynecology/Obstetrics [facility] [address] [place] [address] Lavonne Edward CRNP [address] [place] [address] 06/29/2023 9:45 AM EDT Office Visit [employer] Work Supervisor Obstetrics Maternal Medicine, [place] [address] [place] [address] Chidi Ochoa, [address] [place] [address] 06/29/2023 9:45 AM EDT Imaging Radiology [facility] [address] [place], [place] [id number] 07/06/2023 10:00 AM EDT Office Visit Gynecology/Obstetrics Jass John [address] [place] [address] Lavonne Edward CRNP [address] [place] [address] Alvaro Non Stress Tests Robyn [address] [place] [address] 07/13/2023 10:00 AM EDT Office Visit Gynecology/Obstetrics Jass John [address] [place] [address] Lavonne Edward CRNP [address] [place] [address] Alvaro Non Stress Tests Robyn [address] [place] [address] 07/20/2023 11:00 AM EDT Office Visit Gynecology/Obstetrics Jass John [address] [place] [address] BackerChing CRNP [address] [place] [address] Alvaro Non Stress Tests Robyn [address] [place] [address] Health Maintenance Due Date Last Done Comments [...] care documented in this encounter Care Teams Dental Therapist Relationship Specialty Start Date End Date Vladimir Watt MD [address] [place] [address] [place] [address] PCP - General Internal Medicine 10/09/16 documented as of this encounter
--- OUTSIDE RECORDS SUMMARY | 2023-07-05 00:31 | External Medical Summary | Summary of Care ---
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 [address] [facility] [place] [address] Nguyen Guillory PA-C [address] [place] [address] Epileptic seizure (HCC)*; Allergies Active Allergy Reactions Criticality Noted Date Comments Sumatriptan Unknown 09/03/2014 Patient states possible cause of pancreatitis Topamax 06/07/2012 documented as of this encounter (statuses as of 05/14/2023) Medications Medication Sig Dispensed Refills Start Date [...] as of this encounter (statuses as of 05/14/2023) Active Problems Problem Noted Date Diagnosed Date [...] acknowledgement form. Supervision of high risk in [facility] 12/22/2022 Thoracic outlet syndrome 12/15/2022 Hypothyroid 12/15/2022 [...] with Keppra Last Neurology visit: June 2022 ([facility]) Patient will continue on Keppra during [...] as of this encounter (statuses as of 05/14/2023) Resolved Problems Problem Noted Date Diagnosed Date [...] Levoxyl 50 mcg daily by PCP at [facility]. She reported normal TFT's in October of [...] as of this encounter (statuses as of 05/14/2023) Immunizations Name Administration Dates Next Due TDAP [...] money to get more. Never true 12/15/2022 [place] Depression Scale Answer Date Recorded [place] Depression Scale Total 5 05/09/2023 The thought [...] 05/22/2023 8:45 AM EDT Office Visit Gynecology/Obstetrics [facility] [address] [place] [address] Ching Moore CRNP [address] [place] [address] 05/29/2023 11:30 AM EDT Office Visit Production Line Technician Obstetrics Maternal Medicine, [place] [address] [place] [address] Manda Murdock, [address] [place] [address] 05/29/2023 11:30 AM EDT [facility] [address] [place] [address] 06/15/2023 8:45 AM EDT Office Visit Gynecology/Obstetrics [facility] [address] [place] [address] Lavonne Edward CRNP [address] [place] [address] 06/29/2023 9:45 AM EDT Office Visit Production Line Technician Obstetrics Maternal Medicine, [place] [address] [place] [address] Chidi Ochoa, [address] [place] [address] 06/29/2023 9:45 AM EDT Imaging Radiology [place] [address] [place] [address] 07/06/2023 10:00 AM EDT Office Visit Gynecology/Obstetrics [facility] [address] [place] [address] Lavonne Edward CRNP [address] [place] [address] John, Non Stress Tests Robyn [address] [place] [address] 07/13/2023 10:00 AM EDT Office Visit Gynecology/Obstetrics [facility] [address] [place] [address] Lavonne Edward CRNP [address] [place] [address] John, Non Stress Tests Robyn [address] [place] [address] 07/20/2023 11:00 AM EDT Office Visit Gynecology/Obstetrics Jass John [address] [place] [address] Ching Moore CRNP [address] [place] [address] Alvaro, Non Stress Tests Robyn [address] [place] [address] Scheduled Orders Name Type Priority Associated Diagnoses Orde r Schedule LEVETIRACETAM LEVEL Lab Routine Epileptic seizure (HCC) Expected: 05/14/2023, Expires: 05/13/2024 Health Maintenance Due Date Last Done Comments Hepatitis B (1 of 3 - 19+ 3-dose series) 2009 COVID-19 Vaccine (2022- season) 2022 Influenza Vaccine (FLU shot) (#1) 2022 Depression Screening 05/08/2024 05/09/2023 TSH 05/08/2024 05/09/2023, 12/03/2022, 01/15/2023, Additional history exists Pap Smear 08/21/2025 [...] as of this encounter Visit Diagnoses Diagnosis Epileptic seizure (HCC)- Primary Unspecified epilepsy without mention of intractable epilepsy state, incidental documented in this encounter Care Teams 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
[2023-07-05] MEDS: ACETAMINOPHEN 325 MG TAB PO PRN (03:27)
[2023-07-05 06:48] LABS: Hematocrit (blood only) 28.8 % (37.0-47.0); Hemoglobin 9.8 g/dl (12.0-16.0); Mean Corpuscular Hemoglobin 30.2 pg (25.0-34.0); Mean Corpuscular Volume 88.9 fL (80.0-100.0); Mean Platelet Volume 11.8 fL (9.4-12.4); Platelet Count 211 K/uL (130-400); RDW Coefficient of Variation 14.1 % (11.5-14.5); RDW Standard Deviation 45.3 fL (36.4-46.3); Red Blood Count 3.24 M/uL (4.20-5.40); White Blood Count 18.52 K/ul (4.8-10.8)
[2023-07-05] MEDS: FERROUS SULFATE 325 MG TAB PO SCH (07:55)
--- NOTE | 2023-07-05 09:57 | Obstetrical Progress Note ---
Date of Service July 05, 2023 Assessment & Plan (1) Normal course: Plan Pt doing well No complaints anticipate disch tomorrow Admission and Anticipated Discharge Date Admission Date: July 04, 2023 Review of Systems Review of Systems: All systems reviewed & are unremarkable except as noted in HPI & below Physical Exam Constitutional: WD/WN, vitals as above well developed and well nourished Eyes: PERRL, conjunctivae normal, anicteric sclerae Neck: trachea midline, no thyromegaly Respiratory: normal respiratory effort, lungs clear to auscultation Auscultation: no crackles, no rales and no wheezes Cardiovascular: RRR, no murmur, no edema Gastrointestinal (Abdomen): normal bowel sounds, soft, nontender, no hepatosplenomegaly Uterus is below umbilicus Musculoskeletal: no cyanosis or clubbing, extremities motor strength 5/5 Skin: no rashes, warm and dry Neurologic: patellar DTR's 2+ bilat, sensation intact Psychiatric: A+Ox3, euthymic affect Genitourinary: normal external appearance Results & Data Vital Signs (Past 12 Hours) Vital Signs Temp Pulse Resp BP Pulse Ox O2 Del Method 07/05/23 03:06 36.4 C L 80 18 99/64 L 99 Room Air 07/04/23 23:08 36.6 C 78 18 113/70 98 Room Air
[2023-07-05] MEDS: PRENATAL VITAMIN 1 TAB PO SCH (11:29)
[2023-07-05] MEDS: bisacodyL 5 MG TABEC PO SCH (20:55)
[2023-07-06 06:44] LABS: Hematocrit (blood only) 29.8 % (37.0-47.0); Hemoglobin 10.1 g/dl (12.0-16.0)
[2023-07-06 09:21] LABS: Basophils # (auto) 0.07 K/uL (0.00-0.20); Basophils % (auto) 0.5 %; Eosinophils # (auto) 0.08 K/uL (0.00-0.50); Eosinophils % (auto) 0.5 %; Immature Granulocytes # (auto) 0.14 K/uL (0.01-0.20); Immature Granulocytes % (auto) 0.9 %; Lymphocytes # (auto) 4.74 K/uL (1.20-3.40); Lymphocytes % (auto) 30.8 %; Mean Platelet Volume 11.8 fL (9.4-12.4); Monocytes % (auto) 4.5 %; Neutrophils # (auto) 9.66 K/uL (1.40-6.50); Neutrophils % (auto) 62.8 %; Platelet Count 202 K/uL (130-400); RDW Coefficient of Variation 14.4 % (11.5-14.5); RDW Standard Deviation 47.4 fL (36.4-46.3); Red Blood Count 3.39 M/uL (4.20-5.40); White Blood Count 15.39 K/ul (4.8-10.8)
--- NOTE | 2023-07-06 09:35 | Obstetrical Progress Note ---
Date of Service July 06, 2023 Assessment & Plan Admission and Anticipated Discharge Date Admission Date: July 04, 2023 Subjective Patient is seen and examined. She feels well, no complaints. Ambulating without dizziness Voiding without difficulty Tolerating regular diet with out N&V Bleeding is minimal No fever/ chills/ CP/ SOB/ N&V/ Leg pain Breast feeding without problems Vital Signs Temp Pulse Resp BP Pulse Ox O2 Del Method 07/06/23 00:40 36.3 C L 74 18 104/66 98 Room Air Vital Signs Temp Pulse Resp BP Pulse Ox O2 Del Method 07/06/23 00:40 36.3 C L 74 18 104/66 98 Room Air 07/05/23 20:40 36.5 C 70 18 110/71 100 Room Air 07/05/23 14:15 36.8 C 74 18 110/73 Room Air Lab Results 07/04/23 07/04/23 07/04/23 Range/Units 07:37 07:37 07:37 WBC 15.41 H (4.8-10.8) K/ul RBC 4.35 (4.20-5.40) M/uL Hgb 13.3 (12.0-16.0) g/dl Hct 38.2 (37.0-47.0) % MCV 87.8 (80.0-100.0) fL MCH 30.6 (25.0-34.0) pg MCHC 34.8 (32.0-36.0) g/dL RDW Std Deviation 43.8 (36.4-46.3) fL RDW Coeff of Shyam 13.8 (11.5-14.5) % Plt Count 241 (130-400) K/uL MPV 11.3 (9.4-12.4) fL Immature Gran % (Auto) % Neut % (Auto) % Lymph % (Auto) % [place] % (Auto) % Eos % (Auto) % Baso % (Auto) % Neut # (Auto) (1.40-6.50) K/uL Lymph # (Auto) (1.20-3.40) K/uL [place] # (Auto) (0.11-0.59) K/uL Eos # (Auto) (0.00-0.50) K/uL Baso # (Auto) (0.00-0.20) K/uL Immature Gran # (Auto) (0.01-0.20) K/uL Absolute Nucleated RBC Nucleated RBC % (auto) Neutrophils % (Manual) Band Neutrophils % Lymphocytes % (Manual) Prolymphocyte % Reactive Lymphs % (Man) Monocytes % (Manual) Eosinophils % (Manual) Basophils % (Manual) Metamyelocytes % (Man) Myelocytes % (Man) Promyelocytes % (Man) Blast Cells % (Manual) Plasma Cell % (Manual) Other Cells % Nucleated RBC % Neutrophils # (Manual) Band Neutrophils # Total Absolute Neuts Lymphocytes # (Manual) Prolymphocyte # Reactive Lymphs # Total Abs Lymphocytes Monocytes # (Manual) Eosinophils # (Manual) Basophils # (Manual) Metamyelocytes # (Man) Myelocytes # (Manual) Promyelocytes # (Man) Blast Cells # (Man) Plasma Cell # (Manual) Other Cells # Nucleated RBCs # (Man) Hypersegmented Neuts Hyposegmented Neuts Hypogranular Neuts Large Granular Lymphs # Lrg Granular Lymphs Hairy Cells Smudge Cells Toxic Granulation Toxic Vacuolation Dohle Bodies Martín Rods Platelet Estimate Hypogranular Platelets Giant Platelets Platelet Satelliting RBC Morphology Polychromasia Hypochromasia Poikilocytosis Basophilic Stippling Anisocytosis Microcytosis Macrocytosis Spherocytes Pappenheimer Bodies Sickle Cells Target Cells Tear Drop Cells Ovalocytes Stomatocytes [place] Bodies Echinocytes Acanthocytes (Spur) Rouleaux RBC Agglutinates Schistocytes Sezary Cell Blood Parasites ID Blood Type A Positive Cancelled Antibody Screen NEGATIVE Cancelled 07/05/23 07/06/23 07/06/23 Range/Units 06:09 06:09 06:09 WBC 18.52 H 15.39 H Cancelled (4.8-10.8) K/ul RBC 3.24 L 3.39 L (4.20-5.40) M/uL Hgb 9.8 L D (12.0-16.0) g/dl Hct 28.8 L (37.0-47.0) % MCV 88.9 (80.0-100.0) fL MCH 30.2 (25.0-34.0) pg MCHC 34.0 (32.0-36.0) g/dL RDW Std Deviation 45.3 (36.4-46.3) fL RDW Coeff of Shyam 14.1 (11.5-14.5) % Plt Count 211 (130-400) K/uL MPV 11.8 (9.4-12.4) fL Immature Gran % (Auto) % Neut % (Auto) % Lymph % (Auto) % [place] % (Auto) % Eos % (Auto) % Baso % (Auto) % Neut # (Auto) (1.40-6.50) K/uL Lymph # (Auto) (1.20-3.40) K/uL [place] # (Auto) (0.11-0.59) K/uL Eos # (Auto) (0.00-0.50) K/uL Baso # (Auto) (0.00-0.20) K/uL Immature Gran # (Auto) (0.01-0.20) K/uL Absolute Nucleated RBC Nucleated RBC % (auto) Neutrophils % (Manual) Band Neutrophils % Lymphocytes % (Manual) Prolymphocyte % Reactive Lymphs % (Man) Monocytes % (Manual) Eosinophils % (Manual) Basophils % (Manual) Metamyelocytes % (Man) Myelocytes % (Man) Promyelocytes % (Man) Blast Cells % (Manual) Plasma Cell % (Manual) Other Cells % Nucleated RBC % Neutrophils # (Manual) Band Neutrophils # Total Absolute Neuts Lymphocytes # (Manual) Prolymphocyte # Reactive Lymphs # Total Abs Lymphocytes Monocytes # (Manual) Eosinophils # (Manual) Basophils # (Manual) Metamyelocytes # (Man) Myelocytes # (Manual) Promyelocytes # (Man) Blast Cells # (Man) Plasma Cell # (Manual) Other Cells # Nucleated RBCs # (Man) Hypersegmented Neuts Hyposegmented Neuts Hypogranular Neuts Large Granular Lymphs # Lrg Granular Lymphs Hairy Cells Smudge Cells Toxic Granulation Toxic Vacuolation Dohle Bodies Martín Rods Platelet Estimate Hypogranular Platelets Giant Platelets Platelet Satelliting RBC Morphology Polychromasia Hypochromasia Poikilocytosis Basophilic Stippling Anisocytosis Microcytosis Macrocytosis Spherocytes Pappenheimer Bodies Sickle Cells Target Cells Tear Drop Cells Ovalocytes Stomatocytes [place] Bodies Echinocytes Acanthocytes (Spur) Rouleaux RBC Agglutinates Schistocytes Sezary Cell Blood Parasites ID Blood Type Antibody Screen 07/06/23 07/06/23 07/06/23 Range/Units 06:09 06:09 06:09 WBC (4.8-10.8) K/ul RBC Cancelled (4.20-5.40) M/uL Hgb 10.1 L Cancelled (12.0-16.0) g/dl Hct 29.8 L Cancelled (37.0-47.0) % MCV Cancelled (80.0-100.0) fL MCH 31.0 (25.0-34.0) pg MCHC (32.0-36.0) g/dL RDW Std Deviation (36.4-46.3) fL RDW Coeff of Shyam (11.5-14.5) % Plt Count (130-400) K/uL MPV (9.4-12.4) fL Immature Gran % (Auto) % Neut % (Auto) % Lymph % (Auto) % [place] % (Auto) % Eos % (Auto) % Baso % (Auto) % Neut # (Auto) (1.40-6.50) K/uL Lymph # (Auto) (1.20-3.40) K/uL [place] # (Auto) (0.11-0.59) K/uL Eos # (Auto) (0.00-0.50) K/uL Baso # (Auto) (0.00-0.20) K/uL Immature Gran # (Auto) (0.01-0.20) K/uL Absolute Nucleated RBC Nucleated RBC % (auto) Neutrophils % (Manual) Band Neutrophils % Lymphocytes % (Manual) Prolymphocyte % Reactive Lymphs % (Man) Monocytes % (Manual) Eosinophils % (Manual) Basophils % (Manual) Metamyelocytes % (Man) Myelocytes % (Man) Promyelocytes % (Man) Blast Cells % (Manual) Plasma Cell % (Manual) Other Cells % Nucleated RBC % Neutrophils # (Manual) Band Neutrophils # Total Absolute Neuts Lymphocytes # (Manual) Prolymphocyte # Reactive Lymphs # Total Abs Lymphocytes Monocytes # (Manual) Eosinophils # (Manual) Basophils # (Manual) Metamyelocytes # (Man) Myelocytes # (Manual) Promyelocytes # (Man) Blast Cells # (Man) Plasma Cell # (Manual) Other Cells # Nucleated RBCs # (Man) Hypersegmented Neuts Hyposegmented Neuts Hypogranular Neuts Large Granular Lymphs # Lrg Granular Lymphs Hairy Cells Smudge Cells Toxic Granulation Toxic Vacuolation Dohle Bodies Martín Rods Platelet Estimate Hypogranular Platelets Giant Platelets Platelet Satelliting RBC Morphology Polychromasia Hypochromasia Poikilocytosis Basophilic Stippling Anisocytosis Microcytosis Macrocytosis Spherocytes Pappenheimer Bodies Sickle Cells Target Cells Tear Drop Cells Ovalocytes Stomatocytes [place] Bodies Echinocytes Acanthocytes (Spur) Rouleaux RBC Agglutinates Schistocytes Sezary Cell Blood Parasites ID Blood Type Antibody Screen 07/06/23 07/06/23 07/06/23 Range/Units 06:09 06:09 06:09 WBC (4.8-10.8) K/ul RBC (4.20-5.40) M/uL Hgb (12.0-16.0) g/dl Hct (37.0-47.0) % MCV (80.0-100.0) fL MCH Cancelled (25.0-34.0) pg MCHC Cancelled (32.0-36.0) g/dL RDW Std Deviation 47.4 H Cancelled (36.4-46.3) fL RDW Coeff of Shyam 14.4 Cancelled (11.5-14.5) % Plt Count 202 (130-400) K/uL MPV (9.4-12.4) fL Immature Gran % (Auto) % Neut % (Auto) % Lymph % (Auto) % [place] % (Auto) % Eos % (Auto) % Baso % (Auto) % Neut # (Auto) (1.40-6.50) K/uL Lymph # (Auto) (1.20-3.40) K/uL [place] # (Auto) (0.11-0.59) K/uL Eos # (Auto) (0.00-0.50) K/uL Baso # (Auto) (0.00-0.20) K/uL Immature Gran # (Auto) (0.01-0.20) K/uL Absolute Nucleated RBC Nucleated RBC % (auto) Neutrophils % (Manual) Band Neutrophils % Lymphocytes % (Manual) Prolymphocyte % Reactive Lymphs % (Man) Monocytes % (Manual) Eosinophils % (Manual) Basophils % (Manual) Metamyelocytes % (Man) Myelocytes % (Man) Promyelocytes % (Man) Blast Cells % (Manual) Plasma Cell % (Manual) Other Cells % Nucleated RBC % Neutrophils # (Manual) Band Neutrophils # Total Absolute Neuts Lymphocytes # (Manual) Prolymphocyte # Reactive Lymphs # Total Abs Lymphocytes Monocytes # (Manual) Eosinophils # (Manual) Basophils # (Manual) Metamyelocytes # (Man) Myelocytes # (Manual) Promyelocytes # (Man) Blast Cells # (Man) Plasma Cell # (Manual) Other Cells # Nucleated RBCs # (Man) Hypersegmented Neuts Hyposegmented Neuts Hypogranular Neuts Large Granular Lymphs # Lrg Granular Lymphs Hairy Cells Smudge Cells Toxic Granulation Toxic Vacuolation Dohle Bodies Martín Rods Platelet Estimate Hypogranular Platelets Giant Platelets Platelet Satelliting RBC Morphology Polychromasia Hypochromasia Poikilocytosis Basophilic Stippling Anisocytosis Microcytosis Macrocytosis Spherocytes Pappenheimer Bodies Sickle Cells Target Cells Tear Drop Cells Ovalocytes Stomatocytes [place] Bodies Echinocytes Acanthocytes (Spur) Rouleaux RBC Agglutinates Schistocytes Sezary Cell Blood Parasites ID Blood Type Antibody Screen 07/06/23 07/06/23 07/06/23 Range/Units 06:09 06:09 06:09 WBC (4.8-10.8) K/ul RBC (4.20-5.40) M/uL Hgb (12.0-16.0) g/dl Hct (37.0-47.0) % MCV (80.0-100.0) fL MCH (25.0-34.0) pg MCHC (32.0-36.0) g/dL RDW Std Deviation (36.4-46.3) fL RDW Coeff of Shyam (11.5-14.5) % Plt Count Cancelled (130-400) K/uL MPV 11.8 Cancelled (9.4-12.4) fL Immature Gran % (Auto) 0.9 Cancelled % Neut % (Auto) 62.8 % Lymph % (Auto) % [place] % (Auto) % Eos % (Auto) % Baso % (Auto) % Neut # (Auto) (1.40-6.50) K/uL Lymph # (Auto) (1.20-3.40) K/uL [place] # (Auto) (0.11-0.59) K/uL Eos # (Auto) (0.00-0.50) K/uL Baso # (Auto) (0.00-0.20) K/uL Immature Gran # (Auto) (0.01-0.20) K/uL Absolute Nucleated RBC Nucleated RBC % (auto) Neutrophils % (Manual) Band Neutrophils % Lymphocytes % (Manual) Prolymphocyte % Reactive Lymphs % (Man) Monocytes % (Manual) Eosinophils % (Manual) Basophils % (Manual) Metamyelocytes % (Man) Myelocytes % (Man) Promyelocytes % (Man) Blast Cells % (Manual) Plasma Cell % (Manual) Other Cells % Nucleated RBC % Neutrophils # (Manual) Band Neutrophils # Total Absolute Neuts Lymphocytes # (Manual) Prolymphocyte # Reactive Lymphs # Total Abs Lymphocytes Monocytes # (Manual) Eosinophils # (Manual) Basophils # (Manual) Metamyelocytes # (Man) Myelocytes # (Manual) Promyelocytes # (Man) Blast Cells # (Man) Plasma Cell # (Manual) Other Cells # Nucleated RBCs # (Man) Hypersegmented Neuts Hyposegmented Neuts Hypogranular Neuts Large Granular Lymphs # Lrg Granular Lymphs Hairy Cells Smudge Cells Toxic Granulation Toxic Vacuolation Dohle Bodies Martín Rods Platelet Estimate Hypogranular Platelets Giant Platelets Platelet Satelliting RBC Morphology Polychromasia Hypochromasia Poikilocytosis Basophilic Stippling Anisocytosis Microcytosis Macrocytosis Spherocytes Pappenheimer Bodies Sickle Cells Target Cells Tear Drop Cells Ovalocytes Stomatocytes [place] Bodies Echinocytes Acanthocytes (Spur) Rouleaux RBC Agglutinates Schistocytes Sezary Cell Blood Parasites ID Blood Type Antibody Screen 07/06/23 07/06/23 07/06/23 Range/Units 06:09 06:09 06:09 WBC (4.8-10.8) K/ul RBC (4.20-5.40) M/uL Hgb (12.0-16.0) g/dl Hct (37.0-47.0) % MCV (80.0-100.0) fL MCH (25.0-34.0) pg MCHC (32.0-36.0) g/dL RDW Std Deviation (36.4-46.3) fL RDW Coeff of Shyam (11.5-14.5) % Plt Count (130-400) K/uL MPV (9.4-12.4) fL Immature Gran % (Auto) % Neut % (Auto) Cancelled % Lymph % (Auto) 30.8 Cancelled % [place] % (Auto) 4.5 Cancelled % Eos % (Auto) 0.5 % Baso % (Auto) % Neut # (Auto) (1.40-6.50) K/uL Lymph # (Auto) (1.20-3.40) K/uL [place] # (Auto) (0.11-0.59) K/uL Eos # (Auto) (0.00-0.50) K/uL Baso # (Auto) (0.00-0.20) K/uL Immature Gran # (Auto) (0.01-0.20) K/uL Absolute Nucleated RBC Nucleated RBC % (auto) Neutrophils % (Manual) Band Neutrophils % Lymphocytes % (Manual) Prolymphocyte % Reactive Lymphs % (Man) Monocytes % (Manual) Eosinophils % (Manual) Basophils % (Manual) Metamyelocytes % (Man) Myelocytes % (Man) Promyelocytes % (Man) Blast Cells % (Manual) Plasma Cell % (Manual) Other Cells % Nucleated RBC % Neutrophils # (Manual) Band Neutrophils # Total Absolute Neuts Lymphocytes # (Manual) Prolymphocyte # Reactive Lymphs # Total Abs Lymphocytes Monocytes # (Manual) Eosinophils # (Manual) Basophils # (Manual) Metamyelocytes # (Man) Myelocytes # (Manual) Promyelocytes # (Man) Blast Cells # (Man) Plasma Cell # (Manual) Other Cells # Nucleated RBCs # (Man) Hypersegmented Neuts Hyposegmented Neuts Hypogranular Neuts Large Granular Lymphs # Lrg Granular Lymphs Hairy Cells Smudge Cells Toxic Granulation Toxic Vacuolation Dohle Bodies Martín Rods Platelet Estimate Hypogranular Platelets Giant Platelets Platelet Satelliting RBC Morphology Polychromasia Hypochromasia Poikilocytosis Basophilic Stippling Anisocytosis Microcytosis Macrocytosis Spherocytes Pappenheimer Bodies Sickle Cells Target Cells Tear Drop Cells Ovalocytes Stomatocytes [place] Bodies Echinocytes Acanthocytes (Spur) Rouleaux RBC Agglutinates Schistocytes Sezary Cell Blood Parasites ID Blood Type Antibody Screen 07/06/23 07/06/23 07/06/23 Range/Units 06:09 06:09 06:09 WBC (4.8-10.8) K/ul RBC (4.20-5.40) M/uL Hgb (12.0-16.0) g/dl Hct (37.0-47.0) % MCV (80.0-100.0) fL MCH (25.0-34.0) pg MCHC (32.0-36.0) g/dL RDW Std Deviation (36.4-46.3) fL RDW Coeff of Shyam (11.5-14.5) % Plt Count (130-400) K/uL MPV (9.4-12.4) fL Immature Gran % (Auto) % Neut % (Auto) % Lymph % (Auto) % [place] % (Auto) % Eos % (Auto) Cancelled % Baso % (Auto) 0.5 Cancelled % Neut # (Auto) 9.66 H Cancelled (1.40-6.50) K/uL Lymph # (Auto) 4.74 H (1.20-3.40) K/uL [place] # (Auto) (0.11-0.59) K/uL Eos # (Auto) (0.00-0.50) K/uL Baso # (Auto) (0.00-0.20) K/uL Immature Gran # (Auto) (0.01-0.20) K/uL Absolute Nucleated RBC Nucleated RBC % (auto) Neutrophils % (Manual) Band Neutrophils % Lymphocytes % (Manual) Prolymphocyte % Reactive Lymphs % (Man) Monocytes % (Manual) Eosinophils % (Manual) Basophils % (Manual) Metamyelocytes % (Man) Myelocytes % (Man) Promyelocytes % (Man) Blast Cells % (Manual) Plasma Cell % (Manual) Other Cells % Nucleated RBC % Neutrophils # (Manual) Band Neutrophils # Total Absolute Neuts Lymphocytes # (Manual) Prolymphocyte # Reactive Lymphs # Total Abs Lymphocytes Monocytes # (Manual) Eosinophils # (Manual) Basophils # (Manual) Metamyelocytes # (Man) Myelocytes # (Manual) Promyelocytes # (Man) Blast Cells # (Man) Plasma Cell # (Manual) Other Cells # Nucleated RBCs # (Man) Hypersegmented Neuts Hyposegmented Neuts Hypogranular Neuts Large Granular Lymphs # Lrg Granular Lymphs Hairy Cells Smudge Cells Toxic Granulation Toxic Vacuolation Dohle Bodies Martín Rods Platelet Estimate Hypogranular Platelets Giant Platelets Platelet Satelliting RBC Morphology Polychromasia Hypochromasia Poikilocytosis Basophilic Stippling Anisocytosis Microcytosis Macrocytosis Spherocytes Pappenheimer Bodies Sickle Cells Target Cells Tear Drop Cells Ovalocytes Stomatocytes [place] Bodies Echinocytes Acanthocytes (Spur) Rouleaux RBC Agglutinates Schistocytes Sezary Cell Blood Parasites ID Blood Type Antibody Screen 07/06/23 07/06/23 07/06/23 Range/Units 06:09 06:09 06:09 WBC (4.8-10.8) K/ul RBC (4.20-5.40) M/uL Hgb (12.0-16.0) g/dl Hct (37.0-47.0) % MCV (80.0-100.0) fL MCH (25.0-34.0) pg MCHC (32.0-36.0) g/dL RDW Std Deviation (36.4-46.3) fL RDW Coeff of Shyam (11.5-14.5) % Plt Count (130-400) K/uL MPV (9.4-12.4) fL Immature Gran % (Auto) % Neut % (Auto) % Lymph % (Auto) % [place] % (Auto) % Eos % (Auto) % Baso % (Auto) % Neut # (Auto) (1.40-6.50) K/uL Lymph # (Auto) Cancelled (1.20-3.40) K/uL [place] # (Auto) 0.70 H Cancelled (0.11-0.59) K/uL Eos # (Auto) 0.08 Cancelled (0.00-0.50) K/uL Baso # (Auto) 0.07 (0.00-0.20) K/uL Immature Gran # (Auto) (0.01-0.20) K/uL Absolute Nucleated RBC Nucleated RBC % (auto) Neutrophils % (Manual) Band Neutrophils % Lymphocytes % (Manual) Prolymphocyte % Reactive Lymphs % (Man) Monocytes % (Manual) Eosinophils % (Manual) Basophils % (Manual) Metamyelocytes % (Man) Myelocytes % (Man) Promyelocytes % (Man) Blast Cells % (Manual) Plasma Cell % (Manual) Other Cells % Nucleated RBC % Neutrophils # (Manual) Band Neutrophils # Total Absolute Neuts Lymphocytes # (Manual) Prolymphocyte # Reactive Lymphs # Total Abs Lymphocytes Monocytes # (Manual) Eosinophils # (Manual) Basophils # (Manual) Metamyelocytes # (Man) Myelocytes # (Manual) Promyelocytes # (Man) Blast Cells # (Man) Plasma Cell # (Manual) Other Cells # Nucleated RBCs # (Man) Hypersegmented Neuts Hyposegmented Neuts Hypogranular Neuts Large Granular Lymphs # Lrg Granular Lymphs Hairy Cells Smudge Cells Toxic Granulation Toxic Vacuolation Dohle Bodies Martín Rods Platelet Estimate Hypogranular Platelets Giant Platelets Platelet Satelliting RBC Morphology Polychromasia Hypochromasia Poikilocytosis Basophilic Stippling Anisocytosis Microcytosis Macrocytosis Spherocytes Pappenheimer Bodies Sickle Cells Target Cells Tear Drop Cells Ovalocytes Stomatocytes [place] Bodies Echinocytes Acanthocytes (Spur) Rouleaux RBC Agglutinates Schistocytes Sezary Cell Blood Parasites ID Blood Type Antibody Screen 07/06/23 07/06/23 Range/Units 06:09 06:09 WBC (4.8-10.8) K/ul RBC (4.20-5.40) M/uL Hgb (12.0-16.0) g/dl Hct (37.0-47.0) % MCV (80.0-100.0) fL MCH (25.0-34.0) pg MCHC (32.0-36.0) g/dL RDW Std Deviation (36.4-46.3) fL RDW Coeff of Shyam (11.5-14.5) % Plt Count (130-400) K/uL MPV (9.4-12.4) fL Immature Gran % (Auto) % Neut % (Auto) % Lymph % (Auto) % [place] % (Auto) % Eos % (Auto) % Baso % (Auto) % Neut # (Auto) (1.40-6.50) K/uL Lymph # (Auto) (1.20-3.40) K/uL [place] # (Auto) (0.11-0.59) K/uL Eos # (Auto) (0.00-0.50) K/uL Baso # (Auto) Cancelled (0.00-0.20) K/uL Immature Gran # (Auto) 0.14 Cancelled (0.01-0.20) K/uL Absolute Nucleated RBC Cancelled Nucleated RBC % (auto) Cancelled Neutrophils % (Manual) Cancelled Band Neutrophils % Cancelled Lymphocytes % (Manual) Cancelled Prolymphocyte % Cancelled Reactive Lymphs % (Man) Cancelled Monocytes % (Manual) Cancelled Eosinophils % (Manual) Cancelled Basophils % (Manual) Cancelled Metamyelocytes % (Man) Cancelled Myelocytes % (Man) Cancelled Promyelocytes % (Man) Cancelled Blast Cells % (Manual) Cancelled Plasma Cell % (Manual) Cancelled Other Cells % Cancelled Nucleated RBC % Cancelled Neutrophils # (Manual) Cancelled Band Neutrophils # Cancelled Total Absolute Neuts Cancelled Lymphocytes # (Manual) Cancelled Prolymphocyte # Cancelled Reactive Lymphs # Cancelled Total Abs Lymphocytes Cancelled Monocytes # (Manual) Cancelled Eosinophils # (Manual) Cancelled Basophils # (Manual) Cancelled Metamyelocytes # (Man) Cancelled Myelocytes # (Manual) Cancelled Promyelocytes # (Man) Cancelled Blast Cells # (Man) Cancelled Plasma Cell # (Manual) Cancelled Other Cells # Cancelled Nucleated RBCs # (Man) Cancelled Hypersegmented Neuts Cancelled Hyposegmented Neuts Cancelled Hypogranular Neuts Cancelled Large Granular Lymphs Cancelled # Lrg Granular Lymphs Cancelled Hairy Cells Cancelled Smudge Cells Cancelled Toxic Granulation Cancelled Toxic Vacuolation Cancelled Dohle Bodies Cancelled Martín Rods Cancelled Platelet Estimate Cancelled Hypogranular Platelets Cancelled Giant Platelets Cancelled Platelet Satelliting Cancelled RBC Morphology Cancelled Polychromasia Cancelled Hypochromasia Cancelled Poikilocytosis Cancelled Basophilic Stippling Cancelled Anisocytosis Cancelled Microcytosis Cancelled Macrocytosis Cancelled Spherocytes Cancelled Pappenheimer Bodies Cancelled Sickle Cells Cancelled Target Cells Cancelled Tear Drop Cells Cancelled Ovalocytes Cancelled Stomatocytes Cancelled [place] Bodies Cancelled Echinocytes Cancelled Acanthocytes (Spur) Cancelled Rouleaux Cancelled RBC Agglutinates Cancelled Schistocytes Cancelled Sezary Cell Cancelled Blood Parasites ID Cancelled Blood Type Antibody Screen PE: General: Alert, orientedx3, NAD Abd: soft, NT, fundus firm, below Umbilicus Perineum intact, Lochia rubra minimal Ext; NT, no edema AP: 33 yo s/p , ppd# 2, s/p PTL&D, VSS Afebrile doing well GBS is back, negative Continue routine care All questions were answered D/C home , f/u in office Results & Data Vital Signs (Past 12 Hours) Vital Signs Temp Pulse Resp BP Pulse Ox O2 Del Method 07/06/23 00:40 36.3 C L 74 18 104/66 98 Room Air
[2023-07-06 14:09] LABS: Mean Corpuscular Hgb Conc 33.9 g/dL (32.0-36.0); Mean Corpuscular Volume 89.5 fL (80.0-100.0)
== END 2023-07-06 10:30 | disposition home health service (06) | DRG 806 ==
LOC: OPB 05:54 → 4S1 05:57 → 4E2 18:17